=== PATIENT | male | born 1955 | race Caucasian/White ===

== ENCOUNTER 2017-11-04 23:28 | Emergency (ER) | payer OTHER ==
[~2017-11-04] VITALS: Ht 175.3 cm; Wt 89.8 kg
[2017-11-04] MEDS ORDERED: LANTUS100 UNIT/M SUBQ (23:34)
[2017-11-04] MEDS ORDERED: GLUMETZA500 PO (23:34)
[2017-11-05] MEDS ORDERED: HYDROXYZINE HCL25 M1 PO (00:05)
== END 2017-11-05 00:45 | disposition home or self-care (01) ==
LOC: ER 23:28
DX: F41.9 Anxiety disorder, unspecified (principal)

== ENCOUNTER 2017-11-15 21:34 | Emergency (ER) | payer OTHER ==
[~2017-11-15] VITALS: Ht 175.3 cm; Wt 89.8 kg
--- NOTE | ~2017-11-15 | EKG ---
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
[~2017-11-15 21:34] MED LIST: GLUMETZA500 PO; HYDROXYZINE HCL25 M1 PO; LANTUS100 UNIT/M SUBQ
[2017-11-15 22:10] LABS: ABSOLUTE NEUTROPHILS 7.4 thou/uL (1.4-8.2); BASOPHILS 0.9 % (0.0-2.0); EOSINOPHILS 3.2 % (0.0-3.0); HEMATOCRIT 40.7 % (42.0-52.0); HEMOGLOBIN 14.1 gm/dL (14.0-18.0); LYMPHOCYTES 16.2 % (24.0-44.0); MCH 29.7 pg (26.0-34.0); MCHC 34.7 g/dL (28.0-37.0); MCV 85.6 fL (80.0-100.0); MONOCYTES 7.7 % (1.0-8.0); PLATELET COUNT 280 thou/uL (150-400); RBC 4.76 mil/uL (4.50-6.00); RDW 15.2 % (10.5-14.5); WBC 10.2 thou/uL (4.0-11.0)
[2017-11-15 22:17] LABS: ANION GAP 9 mmol/L (7-16); BUN 17 mg/dL (7-18); CALCIUM 8.9 mg/dL (8.5-10.1); CHLORIDE 94 mmol/L (98-107); CO2 22 mmol/L (21-32); GLUCOSE 152 mg/dL (74-106); POTASSIUM 4.3 mmol/L (3.5-5.1); SODIUM 125 mmol/L (136-145)
[2017-11-15 22:26] LABS: TROPONIN-I < 0.04 ng/mL (<0.06)
[2017-11-15] MEDS ORDERED: HYDROXYZINE HCL25 M1 PO (22:56)
[2017-11-15] MEDS ORDERED: PROVENTIL HFA6.7 G1 INH (22:56)
[2017-11-15] MEDS ORDERED: LEVAQUIN 750 M750 MG PO (22:56)
[2017-11-16 01:14] VITALS: BP 137/84
== END 2017-11-16 01:16 | disposition home or self-care (01) ==
LOC: ER 21:34
PROVIDERS: Physician Assistant
DX: J18.9 Pneumonia, unspecified organism (principal); F41.0 Panic disorder [episodic paroxysmal anxiety]; E11.9 Type 2 diabetes mellitus without complications; Z90.49 Acquired absence of other specified parts of digestive tract; Z79.4 Long term (current) use of insulin

== ENCOUNTER 2018-10-19 12:44 | Emergency (ER) | payer OTHER ==
[~2018-10-19] VITALS: Ht 175.3 cm; Wt 77.1 kg
[~2018-10-19 12:44] MED LIST changes: +LEVAQUIN 750 M750 MG PO; +PROVENTIL HFA6.7 G1 INH
[2018-10-19 12:49] VITALS: BP 108/63
[2018-10-19] MEDS ORDERED: MOBIC7.5 MG PO (13:03)
== END 2018-10-19 13:40 | disposition home or self-care (01) ==
LOC: ER 12:44
DX: M54.42 Lumbago with sciatica, left side (principal); E11.9 Type 2 diabetes mellitus without complications; F32.9 Major depressive disorder, single episode, unspecified; F41.0 Panic disorder [episodic paroxysmal anxiety]; F20.9 Schizophrenia, unspecified; Z90.49 Acquired absence of other specified parts of digestive tract; Z79.4 Long term (current) use of insulin

== ENCOUNTER 2018-11-28 21:40 | Emergency (ER) | payer OTHER ==
[~2018-11-28] VITALS: Ht 175.3 cm; Wt 77.1 kg
[~2018-11-28 21:40] MED LIST changes: +MOBIC7.5 MG PO
[2018-11-28] MEDS ORDERED: FLEXERIL PO (22:38)
[2018-11-28 22:55] VITALS: BP 124/68
== END 2018-11-28 22:55 | disposition home or self-care (01) ==
LOC: ER 21:40
DX: M54.5 Low back pain (principal); E11.9 Type 2 diabetes mellitus without complications; F41.0 Panic disorder [episodic paroxysmal anxiety]; J44.9 Chronic obstructive pulmonary disease, unspecified; F32.9 Major depressive disorder, single episode, unspecified; F20.9 Schizophrenia, unspecified; Z90.49 Acquired absence of other specified parts of digestive tract; Z79.4 Long term (current) use of insulin

== ENCOUNTER 2018-12-14 23:31 | Emergency (ER) | payer OTHER ==
[~2018-12-14] VITALS: Ht 162.6 cm; Wt 77.1 kg
[~2018-12-14 23:31] MED LIST changes: +FLEXERIL PO
[2018-12-15] MEDS ORDERED: MOBIC7.5 MG PO (02:51)
[2018-12-15] MEDS ORDERED: SENNA-DOCUSATE1 EAC1 PO (02:51)
[2018-12-15] MEDS ORDERED: NORCO 5-325 TA1 EACH PO (02:51)
[2018-12-15 05:08] VITALS: BP 112/73
[2018-12-16] MEDS ORDERED: NORCO 5-325 TA1 EACH PO (18:55)
== END 2018-12-15 05:10 | disposition home or self-care (01) ==
LOC: ER 23:31
DX: S32.050A Wedge compression fracture of fifth lumbar vertebra, initial encounter for closed fracture (principal); E11.9 Type 2 diabetes mellitus without complications; F41.0 Panic disorder [episodic paroxysmal anxiety]; J44.9 Chronic obstructive pulmonary disease, unspecified; F32.9 Major depressive disorder, single episode, unspecified; F20.9 Schizophrenia, unspecified; Z90.49 Acquired absence of other specified parts of digestive tract; Z79.4 Long term (current) use of insulin; W18.39XA Other fall on same level, initial encounter; Y92.89 Other specified places as the place of occurrence of the external cause; Y93.89 Activity, other specified; Y99.8 Other external cause status

== ENCOUNTER 2018-12-16 17:59 | Emergency (ER) | payer OTHER ==
[~2018-12-16] VITALS: Ht 170.2 cm; Wt 77.1 kg
[~2018-12-16 17:59] MED LIST changes: +NORCO 5-325 TA1 EACH PO; +SENNA-DOCUSATE1 EAC1 PO
[2018-12-16] MEDS ORDERED: NORCO 5-325 TA1 EACH PO (18:55)
[2018-12-16 19:09] VITALS: BP 146/84
== END 2018-12-16 19:11 | disposition home or self-care (01) ==
LOC: ER 17:59
DX: S32.058A Other fracture of fifth lumbar vertebra, initial encounter for closed fracture (principal); Z76.0 Encounter for issue of repeat prescription; E11.9 Type 2 diabetes mellitus without complications; J44.9 Chronic obstructive pulmonary disease, unspecified; F32.9 Major depressive disorder, single episode, unspecified; F20.9 Schizophrenia, unspecified; Z90.49 Acquired absence of other specified parts of digestive tract; Z79.4 Long term (current) use of insulin; X58.XXXA Exposure to other specified factors, initial encounter; Y92.89 Other specified places as the place of occurrence of the external cause; Y93.89 Activity, other specified; Y99.8 Other external cause status

== ENCOUNTER 2019-01-06 12:31 | Inpatient (IN) | payer OTHER ==
[~2019-01-06] VITALS: Ht 175.3 cm; Wt 65.3 kg
[2019-01-06 12:31] VITALS: BP 111/66
--- NOTE | 2019-01-06 12:46 | NUR ---
SPOKE WITH , SHE STATES HE IS OUT OF DIABETIC MEDICINE FOR 5 MONTHS.
[2019-01-06 13:04] LABS: ABSOLUTE NEUTROPHILS 10.6 thou/uL (1.4-8.2); BASOPHILS 0.6 % (0.0-2.0); EOSINOPHILS 0.5 % (0.0-3.0); HEMATOCRIT 30.9 % (42.0-52.0); HEMOGLOBIN 10.2 gm/dL (14.0-18.0); LYMPHOCYTES 8.1 % (24.0-44.0); MCH 30.2 pg (26.0-34.0); MCHC 33.1 g/dL (28.0-37.0); MCV 91.1 fL (80.0-100.0); MONOCYTES 5.2 % (1.0-8.0); PLATELET COUNT 243 thou/uL (150-400); POLYS 85.6 % (36.0-66.0); RBC 3.39 mil/uL (4.50-6.00); RDW 17.7 % (10.5-14.5); WBC 12.4 thou/uL (4.0-11.0)
[2019-01-06 13:09] LABS: AMP/METHAMP Negative (Negative); BARBITURATES Negative (Negative); BENZODIAZEPINES Negative (Negative); COCAINE Negative (Negative); METHADONE Negative (Negative); OPIATES Negative (Negative); PCP Negative (Negative)
[2019-01-06 13:13] LABS: CALCIUM 8.9 mg/dL (8.5-10.1); CREATININE 1.2 mg/dL (0.7-1.3); POTASSIUM 4.1 mmol/L (3.5-5.1)
[2019-01-06 13:23] LABS: TROPONIN-I 0.37 ng/mL (<0.06)
[2019-01-06 15:47] LABS: BE(vivo) -1.2 mmol/L (-2 to +3); HCO3 23.9 mmol/L (22.0-26.0); PCO2 41.7 mmHg (35.0-45.0); PO2 61.7 mmHg (80.0-100.0); pH 7.376 (7.360-7.450); sO2 91.2 % (92.0-98.0)
[2019-01-06 16:49] VITALS: BP 139/64
--- NOTE | 2019-01-06 17:46 | 2DMMODE ---
[facility] [place] [address] 2 D/M-MODE ECHOCARDIOGRAM Name: DIA ADAMS Room #: 355-P ADM IN M.R.#: [id number] ������������� Admission: 01/06/19 ������������� Attend Phys: Tariq Nguyen MD Discharge: ��� ������������� ��� Date of : 55 Date of Service: 01/06/19 1746 �� Report #: [id number] �������� ��������������������������������������������[id number] THIS REPORT FOR: //name// APPROVED REPORT Study performed: 01/06/2019 14:25:21 EXAM: Comprehensive 2D, Doppler, and color-flow Echocardiogram Patient Location: ER Room #: 7 Status: stat BSA: 1.91 HR: 103 bpm BP: 126/63 mmHg Rhythm: Tachycardia Other Information Study Quality: Technically DifficultTechnically Limited Risk Factors: Cardiac Risk Factors: Diabetes (insulin), Smoking Indications Diabetes Elevated Troponin Chest Pain Hypertension/HDD 2D Dimensions IVC: 17.00 mm Aortic Valve AoV Peak Santos.: 1.68 m/s AO Peak Gr.: 11.26 mmHg LVOT Max P.66 mmHg LVOT Max V: 1.63 m/s Left Ventricle The left ventricle is normal size. There is normal LV segmental wall motion. There is normal left ventricular wall thickness. Left ventricular systolic function is hyperdynamic. LVEF is 65-70%. Grade I - abnormal relaxation pattern. Right Ventricle The right ventricle is normal size. The right ventricular systolic [facility] [address] [place] [address] 2 D/M-MODE ECHOCARDIOGRAM Name: DIA ADAMS Room #: 355-P ADM IN M.R.#: [id number] ������������� Admission: 01/06/19 ������������� Attend Phys: Tariq Nguyen MD Discharge: ��� ������������� ��� Date of : 55 Date of Service: 01/06/19 1746 �� Report #: [id number] �������� ��������������������������������������������[id number] function is normal. Atria The left atrium size is normal. The right atrium size is normal. Aortic Valve The aortic valve is normal in structure. No aortic regurgitation is present. There is no aortic valvular stenosis. Mitral Valve The mitral valve is normal in structure. There is no mitral valve regurgitation noted. No evidence of mitral valve stenosis. Tricuspid Valve The tricuspid valve is normal in structure. There is no tricuspid valve regurgitation noted. Pulmonic Valve Pulmonic valve is not well visualized. Great Vessels The aortic root is normal in size. IVC is normal in size and collapses >50% with inspiration. Pericardium There is no pericardial effusion. <Conclusion> The left ventricle is normal size. Left ventricular systolic function is hyperdynamic. LVEF is 65-70%. Grade I - abnormal relaxation pattern. The left atrium size is normal. The aortic valve is normal in structure. The mitral valve is normal in structure. There is no mitral valve regurgitation noted. There is no tricuspid valve regurgitation noted. The aortic root is normal in size. There is no pericardial effusion. ��������������������������������������������� <ELECTRONICALLY SIGNED> ���������������������������������������� By: Bg Benites MD, FACC ��������������������������������������������� 01/06/191745 45 45 Bg Benites MD, FACC /INF
[2019-01-06 17:50] VITALS: BP 143/66
[2019-01-06 17:52] VITALS: BP 112/68
--- NOTE | 2019-01-06 18:00 | NUR ---
report received from Bradley/ems @ 1704. pt received to room 355 via stretcher and Bradley @ 7796. pt settled into bed and orientated to room. vss. scd's on. pt noted to have a small bm (incontinent) upon skin assessment. noted rectoseal & blanching redness to coccyx area, cleaned and barrier cream applied. pt quiet and comfortably at this time. o2 @ 2.5lt per nc applied by er prior to receiving dt high 80s to low 90's saturations. received call from dr. medel as he was consulted by dr. bauer. bed alarm on. no family or friends at bs at this time. ac = 100 @ 1163.
[2019-01-06 19:32] VITALS: BP 120/61
[2019-01-07] MEDS ORDERED: TRAZODONE HCL100 MG PO (02:08)
[2019-01-07 03:47] VITALS: BP 149/75
--- NOTE | 2019-01-07 06:29 | NUR ---
PT MAKING SLOW PROGRESS TOWARDS GOALS. PT SLEPT MUCH OF THE EVENING. DID AWAKE AND WAS GIVEN ONE LORTAB FOR BACK PAIN VOICING MILD RELIEF. AT BEDSIDE OVERNIGHT.
[2019-01-07 16:44] VITALS: BP 142/68
[2019-01-07 19:53] VITALS: BP 139/60
[2019-01-08 05:38] VITALS: BP 130/63
--- NOTE | 2019-01-08 06:07 | NUR ---
PT MAKING SLOW PROGRESS TOWARDS GOALS. OCCASIONAL CONGESTED COUGH NOTED. PT DENIES GAGGING OR CHOCKING AT THOSE TIMES. SMALL AMOUNT OF YELLOW SPUTUM. LORTAB X2 GIVEN PER ORDERS.
[2019-01-08 08:01] VITALS: BP 141/67
--- NOTE | 2019-01-08 08:22 | NUR ---
care of pt assumed this am @ ~0700. pt noted to be awake watching tv and requesting coffee this am. pt co chronic back pain 03/01, requesting pain medication this am, given. pt co soa w/ activity (ie walking to the [facility]), pt on o2 @ 2lt nc. vss. pt received breakfast, noted to have nectar thick liquids on tray, which pt enjoys. pt hoping to receive visitors today as well as get a "bit better today". pt voiding per urinal in bed at this time. iv antibx receiving. no family or friends at now. pt requesting he be ordered his trazadone as he says that is the "only thing" that helps him sleep.
[2019-01-08 14:27] LABS: HEMATOCRIT 28.6 % (42.0-52.0); HEMOGLOBIN 9.3 gm/dL (14.0-18.0); MCH 29.5 pg (26.0-34.0); MCHC 32.4 g/dL (28.0-37.0); MCV 90.9 fL (80.0-100.0); RBC 3.14 mil/uL (4.50-6.00); RDW 17.4 % (10.5-14.5); WBC 12.1 thou/uL (4.0-11.0)
[2019-01-08 14:33] LABS: CALCIUM 8.9 mg/dL (8.5-10.1); CREATININE 0.9 mg/dL (0.7-1.3); MAGNESIUM 1.8 mg/dL (1.8-2.4); POTASSIUM 4.9 mmol/L (3.5-5.1)
[2019-01-08 14:39] LABS: APTT 29.3 Seconds (24.5-32.8); INR 1.1; PROTIME 11.1 Seconds (9.3-11.4)
[2019-01-08 16:56] VITALS: BP 117/57
--- NOTE | 2019-01-08 22:31 | EKG ---
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: REGINALD : 1955 Requested By: Neri Pryor Order Number: [id number] MD: Nas Andrew Measurements Intervals [place] Rate: 109 P: 63 [place]: 141 QRS: -55 QRSD: 116 T: 77 QT: 349 QTc: 471 Interpretive Statements Sinus tachycardia Left anterior fascicular block Probable anterolateral infarct, old Compared to ECG 11/15/2017 21:37:39 Sinus rhythm no longer present Right bundle-branch block no longer present Myocardial infarct finding still present Electronically Signed On 01-08-2019 22:31:08 CDT by Nas Andrew [email or web address] ��������������������������������������������� <ELECTRONICALLY SIGNED> ���������������������������������������� By: Nas Andrew MD ��������������������������������������������� 01/08/19 2231 1308 1308 Nas Andrew MD /EPI
--- NOTE | 2019-01-08 22:37 | EKG ---
[address] [address] ELECTROCARDIOGRAM REPORT Name: DIA ADAMS Room #: 355-P ADM IN M.R.#: [id number] ������������������ Admission: 01/06/19 ������������������ Attend Phys: Tariq Nguyen MD Discharge: ������������������ Date of : 55 Report #: [id number] ����������������������������������������������������������������� [id number] THIS REPORT FOR: //name// [facility] Test Date: 2019-01-07 Test Time: 07:43:09 Pat Name: DIA ADAMS Department: Room: 355 P Gender: M Call Center Associate: GLEN : 1955 Requested By: Bg Benites Order Number: [id number] MD: Nas Andrew Measurements Intervals [place] Rate: 93 P: 68 RI: 153 QRS: -48 QRSD: 118 T: 72 QT: 370 QTc: 461 Interpretive Statements Sinus rhythm Left anterior fascicular block Compared to ECG 11/15/2017 21:37:39 Right bundle-branch block no longer present Myocardial infarct finding no longer present Electronically Signed On 01-08-2019 22:37:17 CDT by Nas Andrew [email or web address] ��������������������������������������������� <ELECTRONICALLY SIGNED> ���������������������������������������� By: Nas Andrew MD ��������������������������������������������� 01/08/19 2237 0743 0743 Nas Andrew MD /CON
[2019-01-09 03:21] VITALS: BP 128/72
--- NOTE | 2019-01-09 03:47 | NUR ---
No acute changes this shift. Patient NPO at midnight for bronch with biopsy today. Patient has slept most of shift. Patient has so far been given pain meds once for chronic back pain. Patient stated that his pain decreased quite a bit. Patient coughs often when needed to clear airway. Patient on 1L NC. Wound on bottom assessed; patient's said it started at home and that he started complaining of it hurting before hospitalization. Patient was able to turn self when assessed for strength. Partial progress toward goals at this time.
[2019-01-09 07:55] VITALS: BP 122/62
--- NOTE | 2019-01-09 11:01 | NUR ---
received report from Leidy in pacu @ 4732. pcxr complete in pacu. stated am levaquin ivpb received in pre-op.
--- NOTE | 2019-01-09 15:41 | NUR ---
ASSESSMENT: CM REVIEWED CHART AND MET WITH PATIENT AND HIS AT THE BEDSIDE. PT WAS ADMITTED WITH PNEUMONIA/HYPOXIA AND CT SHOWED MULTIPLE PULMONARY NODULES CONCERNING FOR METASTATIC LUNG CANCER. PT IS TO HAVE BRONCH. PT REPORTS HE LIVES AT HOME WITH HIS IN A SINGLE STORY HOME. PT REPORTS NO STEPS TO ENTER OR ONCE INSIDE. PT REPORTS HE AMBULATES USING A CANE OR WALKER. PT IS CURRENTLY ON OXYGN BUT DOES NOT HAVE ANY OXYGEN AT HOME. PT DENIES HAVING A GRAB BAR OR SHOWER CHAIR. PT IS INTERESTED IN HOMEMAKER SERVICES AND HAS MEDICAID SECONDARY SO CM CONTACTED HOMEMAKERS AT [phone]. PT REPORTS HE IS UNSURE HE HAS HAD HH IN THE PAST. PT DENIES BEING TO A SNF/REHAB. PT REPORTS NEITHER HE OR HIS DRIVE AND THAT PATIENTS WIFES SISTERS TAKES THEM PLACES. CM WILL CONTINUE TO FOLLOW TO ASSIST WITH DISCHARGE NEEDS.
[2019-01-09 16:01] VITALS: BP 122/87
[2019-01-09 19:27] VITALS: BP 128/59
[2019-01-10 03:58] VITALS: BP 102/74
--- NOTE | 2019-01-10 05:15 | NUR ---
Patient tolerating 1LNC well. Pain has been under control with one hydrocodone administration thus far. Patient has slept most of shift with waking up to eating snacks occassionally. Patient reported by dayshift to have had a much better appetite and that appears to be true this shift. Patient has been in bed all shift. An order was given for the patient to be off telemetry to shower. The patient stated he wants to sleep overnight and do it today. at bedside all shift. Progress made toward plan of care goals.
[2019-01-10 05:38] LABS: HEMATOCRIT 26.2 % (42.0-52.0); HEMOGLOBIN 8.5 gm/dL (14.0-18.0); MCH 29.4 pg (26.0-34.0); MCHC 32.5 g/dL (28.0-37.0); MCV 90.7 fL (80.0-100.0); RBC 2.89 mil/uL (4.50-6.00); RDW 17.7 % (10.5-14.5); WBC 12.5 thou/uL (4.0-11.0)
[2019-01-10 05:47] LABS: ALBUMIN 2.5 g/dL (3.4-5.0); CALCIUM 8.5 mg/dL (8.5-10.1); CREATININE 0.9 mg/dL (0.7-1.3); MAGNESIUM 1.8 mg/dL (1.8-2.4); POTASSIUM 4.4 mmol/L (3.5-5.1); TOTAL BILIRUBIN 0.7 mg/dL (<0.1-1.0); TOTAL PROTEIN 6.1 g/dL (6.4-8.2)
[2019-01-10 07:24] VITALS: BP 122/54
[2019-01-10 15:24] VITALS: BP 128/66
--- NOTE | 2019-01-10 16:13 | NUR ---
on-going assessment: CM REVIEWED CHART AND MET WITH PATIENT AT THE BEDSIDE. PT/OT MET WITH PATIENT AND HE IS NOT QUALIFYING FOR SNF. CM MET WITH PATIENT AND HIS AT THE BEDSIDE TO FURTHER DISCUSS NOT HAVING WATER/ELECTRICTY AT THEIR HOME WHICH THEY STATE IT HAS BEEN THIS WAS FOR ABOUT 3 MONTHS. CM ASKED IF THEY HAD REACHED OUT TO ANYONE FOR ASSISTANCE AND THEY STATED NO. HE STATES THEY JUST HAVE TO MAKE IT TO FEBRUARY THEN THEY ARE MOVING INTO AN APARTMENT WHERE ALL THE UTILITIES ARE PAID FOR. CM ASKED WHO HELPED ASSIST THEM WITH FINDING THIS AND HE STATED THEY FOUND IT. CM REACHED OUT TO THE [employer] TO SEE IF THERE IS ANY ASSISTANCE THAT CAN BE OFFERED TO PATIENT AND SHE PROVIDED CM WITH MULTIPLE DIFF RESOURCES THAT MAY BE ABLE TO HELPING DEPENDING ON THEIR WAITING LIST/FUNDING. CM PROVIDED PATIENT WITH LIST AND CONTACT NUMBERS FOR [facility], [employer] [facility], [facility], [facility], [facility]. PATIENT WAS ALSO GIVEN THE NUMBER FOR [employer] [phone] WHO CAN PROVIDE ALL OF THESE RESOURCES WELL MORE IF PATIENT CALLS. CM LEFT THIS INFORMATION WITH PATIENT AND HIS .
--- NOTE | 2019-01-10 17:06 | PATH ---
[facility] [place] [address] PATHOLOGY RPT PROCEDURE Name: DIA ADAMS Room #: 355-P ADM IN M.R.#: [id number] ������������������ Admission: 01/06/19 ������������������ Date of : 55 Discharge: Report #: [id number] Path Case #: [id number] [facility] Accession Number: [id number] . 01 Material submitted: . PART A: bronchus - SUBCARINAL TISSUE BIOPSY PART B: bronchus - PERRI TISSUE BIOPSY. Modifiers: left, lower PART C: bronchus - RUL TISSUE BIOPSY. Modifiers: right, upper . 01 Clinical history: . Lower back pain . 02 Diagnosis: A. Lung, subcarinal tissue, bronchial biopsy: - Superficial detached strips of benign bronchial epithelium as well as blood. - Negative for malignancy. . B. Tissue designated as "left upper lobe tissue", biopsy: - Scant to rare benign bronchial epithelial cells along with fibrin and elements of peripheral blood. - No intact tissue present for evaluation. . C. Lung, right upper lobe tissue, biopsy: - Detached strips of benign bronchial epithelium along with scattered detached single bronchial epithelial cells. - Mild chronic inflammation. - Negative for malignancy. (IUV/db; 01/10/2019) LBQ/01/10/2019 . 02 Electronically signed: . Tessy Ibrahim MD, Pathologist NPI- [id number] . 01 Gross description: . A. The specimen is received in formalin, labeled "Dia Adams, subcarinal tissue biopsy", are few minute hemorrhagic fragments approximately measuring 0.1 cm in greatest dimension. The content of the container is filtered into a biopsy bag and entirely submitted in A1. . B. The specimen is received in formalin, labeled "Dia Adams PERRI tissue biopsy", are few minute hemorrhagic fragments approximately measuring 0.1 cm in greatest dimension. The content of the container is filtered into a biopsy bag and entirely submitted in B1. . C. The specimen is received in formalin, labeled "Dia Adams, [address] [address] PATHOLOGY RPT PROCEDURE Name: DIA ADAMS Room #: 355-P [facility] IN M.R.#: [id number] ������������������ Admission: 01/06/19 ������������������ Date of : 55 Discharge: Report #: [id number] Path Case #: [id number] RUL tissue biopsy", are few minute hemorrhagic fragments approximately measuring 0.1 cm in greatest dimension. The content of the container is filtered into a biopsy bag and entirely submitted in C1. ([facility]; 01/09/2019) . . . . . . . SHS/SHS . 02 Pathologist provided ICD-10: J98.4 . 02 CPT . 118334, 426052, 124447 Specimen Comment: A courtesy copy of this report has been sent to Specimen Comment: [phone], . Specimen Comment: Report sent to / DR TERRELL Performed at: [address], [place] [id number] MD Jason Sarmiento MD Phone: [phone] Performed at: [address] [id number] MD Tessy Ibrahim MD Phone: [phone]
[2019-01-10 20:35] VITALS: BP 122/58
[2019-01-11 03:37] VITALS: BP 114/62
--- NOTE | 2019-01-11 04:56 | NUR ---
ASSUMED CARE OF PT AT 1900. A&Ox4. VS STABLE. CONTINUED W/ 1L O2 VIA NC AND BREATHING TX'S. STATED HE FEELS LIKE HE IS BREATHING A LITTLE BETTER. DID COUGH UP BLOOD TINGED GREEN-WHITE MUCOUS. STATED IT WAS FROM A TREATMENT. 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 PT C/O BACK PAIN 1X, MEDS PROVIDED, PT ABLE TO REST. NO ACUTE DISTRESS OVER NOC. CURRENTLY SLEEPING. PROGRESSING WELL TOWARDS POC GOALS.
[2019-01-11 07:39] VITALS: BP 135/72
[2019-01-11] MEDS ORDERED: LEVAQUIN 500 M500 M2 PO (08:39)
[2019-01-11 11:38] VITALS: BP 118/73
[2019-01-11] MEDS ORDERED: NORCO 5-325 TA1 EACH PO (12:56)
--- NOTE | 2019-01-11 13:07 | PATH ---
[facility] [address] [place] [address] PATHOLOGY RPT PROCEDURE Name: DIA ADAMS Room #: 355-P ADM IN M.R.#: [id number] ������������������ Admission: 01/06/19 ������������������ Date of : 55 Discharge: Report #: [id number] Path Case #: [id number] Note [facility] Accession Number: [id number] TESTS RESULT FLAG UNITS REF RANGE LAB Clinician Provided Cytology Information No. of containers..01 Other (Miscellaneous) Source: BAL PERRI DIAGNOSIS: BAL PERRI NEGATIVE FOR MALIGNANT CELLS. REACTIVE BRONCHIAL CELLS ARE PRESENT. PULMONARY MACROPHAGES (DUST CELLS) ARE PRESENT. Pathologist ICD10: 02 J18.9 Signed out by: Tessy Ibrahim MD, Pathologist NPI- [id number] Performed by: Marcy Edwards, Marketing Co Op ([facility]) Gross description: 01 20ML, YELLOW, CLOUDY /LCS FLAG LEGEND: L-Low Normal,H-High Normal,LL-Alert Low,HH-Alert High <-Panic Low,>-Panic High,A-Abnormal,AA-Critical Abnormal Performed at: [address] [place] [address] Jason Sarmiento MD, [address] [address] Tessy Ibrahim MD, Specimen Comment: A courtesy copy of this report has been sent to Specimen Comment: [phone], . Specimen Comment: Report sent to DR IBARRA / DR ETRRELL Specimen Comment: A duplicate report has been generated due to demographic updates. Performed at: [address], [place], [place] [id number] MD Jason Sarmiento MD Phone: [phone]
--- NOTE | 2019-01-11 13:07 | PATH ---
[facility] [place] [address] PATHOLOGY RPT PROCEDURE Name: DIA ADAMS Room #: 355-P ADM IN M.R.#: [id number] ������������������ Admission: 01/06/19 ������������������ Date of : 55 Discharge: Report #: [id number] Path Case #: [id number] Note [facility] Accession Number: [id number] TESTS RESULT FLAG UNITS REF RANGE LAB Clinician Provided Cytology Information No. of containers..01 Other (Miscellaneous) Source: BRUSH TIP DIAGNOSIS: BRUSH TIP INCONCLUSIVE. REACTIVE BRONCHIAL CELLS ARE PRESENT. PULMONARY MACROPHAGES (DUST CELLS) ARE PRESENT. Comment: Examination shows few groups of cells with clumped chromatin and scant cytoplasm. The nuclear details are obscured due to these being present in the form of groups or clusters. The differential diagnosis for these cell groups includes partially sampled neoplastic cells or markedly reactive bronchial epithelial cells. The bronchial epithelial cells identified elsewhere on the slide appear reactive. Clinical correlation is suggested. Pathologist ICD10: 02 J18.9 Signed out by: Tessy Ibrahim MD, Pathologist NPI- [id number] Performed by: Marcy Edwards, Digital Forensics Examiner ([facility]) FLAG LEGEND: L-Low Normal,H-High Normal,LL-Alert Low,HH-Alert High <-Panic Low,>-Panic High,A-Abnormal,AA-Critical Abnormal Performed at: 01 [facility] [address] [place] [address] Jason Sarmiento MD, 02 [facility] [address] [address] Tessy Ibrahim MD, Specimen Comment: A courtesy copy of this report has been sent to Specimen Comment: [phone], . Specimen Comment: Report sent to / DR TERRELL Specimen Comment: A duplicate report has been generated due to demographic updates. Performed at: [address] [address] PATHOLOGY RPT PROCEDURE Name: DIA ADAMS Room #: 355-P [facility] IN M.R.#: [id number] ������������������ Admission: 01/06/19 ������������������ Date of : 55 Discharge: Report #: [id number] Path Case #: [id number] [facility] [address], [place], [place] [id number] MD Jason Sarmiento MD Phone: [phone]
--- NOTE | 2019-01-11 13:07 | PATH ---
[facility] [address] [place] [address] PATHOLOGY RPT PROCEDURE Name: DIA ADAMS Room #: 355-P ADM IN M.R.#: [id number] ������������������ Admission: 01/06/19 ������������������ Date of : 55 Discharge: Report #: [id number] Path Case #: [id number] Note [facility] Accession Number: [id number] TESTS RESULT FLAG UNITS REF RANGE LAB Clinician Provided Cytology Information No. of containers..01 Other (Miscellaneous) Source: PERRI BRUSHINGS DIAGNOSIS: 02 PERRI BRUSHINGS NEGATIVE FOR MALIGNANT CELLS. REACTIVE BRONCHIAL CELLS ARE PRESENT. RED BLOOD CELLS ARE PRESENT. PULMONARY MACROPHAGES (DUST CELLS) ARE PRESENT. MILD ACUTE INFLAMMATION ASSOCIATED WITH THE BRONCHIAL EPITHELIAL CELLS. Pathologist ICD10: 02 J18.9 Signed out by: 02 Tessy Ibrahim MD, Pathologist NPI- [id number] Performed by: 01 Marcy Edwards, Clerk Television Production ([facility]) FLAG LEGEND: L-Low Normal,H-High Normal,LL-Alert Low,HH-Alert High <-Panic Low,>-Panic High,A-Abnormal,AA-Critical Abnormal Performed at: [address] [place] [address] Jason Sarmiento MD, [address] [address] Tessy Ibrahim MD, Specimen Comment: A courtesy copy of this report has been sent to Specimen Comment: [phone], . Specimen Comment: Report sent to DR IBARRA / DR TERRELL Specimen Comment: A duplicate report has been generated due to demographic updates. Performed at: [address], [place], [place] [id number] MD Jason Sarmiento MD Phone: [phone]
[2019-01-11] MEDS ORDERED: OXYGEN MISCELL (13:25)
[2019-01-11 13:44] VITALS: BP 118/73
[2019-01-11 13:46] VITALS: BP 118/73
--- NOTE | 2019-01-11 13:47 | NUR ---
ON-GOING ASSESSMENT: PT HAS ORDERS TO DISCHARGE HOME TODAY AND IS REQUIRING HOME OXYGEN. CM MET WITH PATIENT AND HIS AT THE BEDSIDE AND ASKED IF THEY HAD CALLED OR FOLLOWED UP WITH ANY OF THE RESOURCES ALISHA PROVIDED YESTERDAY FOR ASSISTANCE WITH TURNING ON THEIR ELECTRICITY OR WATER. THEY STATED NO BUT WILL TODAY. PT IS NEEDING HOME OXYGEN BUT HAS NO POWER. CM DISCUSSED WITH CM DIRECTOR. PROVIDER PLUS IS TO SUPPLY PATIENT WITH TWO WEEKS WORTH OF E TANKS COVERED BY CM DEPARTMENT (APPROVED BY CM DIRECTOR) AND THEN PATIENT WILL BE RESPONSIBLE THERE ON AFTER AND IS RESPONSIBLE FOR FOLLOWING UP WITH THE RESOURCES PROVIDED. PROVIDER PLUS IS TO DELIVER PORTABLE TANK TO PATIENTS ROOM AND WILL DELIVER THE OTHER PORTABLE TANKS TO PTS HOME. CM DISCUSSED WITH PT AND HIS THE IMPORTANCE OF FOLLOWING UP WITH RESOURCES CM CAN ONLY PROVIDE TWO WEEKS COVERED OF E TANKS. PT STATED UNDERSTANDING. PT REPORTS THEY NEED ASSISTANCE WITH TRANSPORTATION HOME. ALISHA PROVIDED BEDSIDE RN WITH A CAB VOUCHER FOR PATIENT AND HIS .
[2019-01-11 13:56] VITALS: BP 118/73
--- NOTE | 2019-01-11 15:04 | NUR ---
PT DISCHARGED TO HOME WITH SPOUSE..VSS..HOME O2 PROVIDED PER CASE MGT X 2 WEEKS..NEEDS O2 1L AT REST AND 4L WITH EXERCISE..PT HAS NO ELECTRICITY OR WATER..SEVERAL AGENCIES PROVIDED PER SWS FOR ASSIST WITH UTILITIES..RX GIVEN..CAB VOUCHER GIVEN...
--- NOTE | 2019-01-11 16:06 | PATH ---
[facility] [address] [place] [address] PATHOLOGY RPT PROCEDURE Name: DIA ADAMS Room #: 355-P [facility] IN M.R.#: [id number] ������������������ Admission: 01/06/19 ������������������ Date of : 55 Discharge: 01/11/19 Report #: [id number] Path Case #: [id number] Note [facility] Accession Number: [id number] TESTS RESULT FLAG UNITS REF RANGE LAB Clinician Provided Cytology Information No. of containers..01 Other (Miscellaneous) Source: SUBCARINAL TBNA ASP DIAGNOSIS: SUBCARINAL TBNA ASP INADEQUATE, INSUFFICIENT CELLS FOR STUDY. ESSENTIALLY ACELLULAR SPECIMEN. Signed out by: 02 Tessy Ibrahim MD, Pathologist NPI- [id number] Performed by: 01 Ray Bunch, Restaurant Hourly Manager ([facility]) FLAG LEGEND: L-Low Normal,H-High Normal,LL-Alert Low,HH-Alert High <-Panic Low,>-Panic High,A-Abnormal,AA-Critical Abnormal Performed at: [address] [place] [address] Jason Sarmiento MD, [address] [address] Tessy Ibrahim MD, Specimen Comment: A courtesy copy of this report has been sent to Specimen Comment: [phone], . Specimen Comment: Report sent to / DR TERRELL Performed at: [address], [place], [place] [id number] MD Jason Sarmiento MD Phone: [phone]
--- NOTE | 2019-01-13 08:27 | NUR ---
CM RECEIVED A VM FROM PATIENTS STATING SHE WANTS TO TALK TO SOMEONE ABOUT HIS OXYGEN. CM ATTEMPTED TO REACH HER [phone] BUT NO ANSWER AND VM IS FULL. CM NOTIFIED PROVIDER PLUS TO REACH OUT TO PATIENT WELL.
== END 2019-01-11 15:09 | disposition home or self-care (01) | DRG 166 ==
LOC: ER 12:31 → 3W 16:21 → EROBS 16:21 → 3W 17:32
PROVIDERS: Emergency Medicine; ADMIT Internal Medicine
PROC: 0B9G8ZX Drainage of Left Upper Lung Lobe, Via Natural or Artificial Opening Endoscopic, Diagnostic (ICD-10-PCS; principal; 2019-01-09)
PROC: 0BBC8ZX Excision of Right Upper Lung Lobe, Via Natural or Artificial Opening Endoscopic, Diagnostic (ICD-10-PCS; principal; 2019-01-09)
PROC: 0BBG8ZX Excision of Left Upper Lung Lobe, Via Natural or Artificial Opening Endoscopic, Diagnostic (ICD-10-PCS; principal; 2019-01-09)
DX: J18.9 Pneumonia, unspecified organism (principal); J96.01 Acute respiratory failure with hypoxia; G92 Toxic encephalopathy; E43 Unspecified severe protein-calorie malnutrition; J44.1 Chronic obstructive pulmonary disease with (acute) exacerbation; J44.0 Chronic obstructive pulmonary disease with (acute) lower respiratory infection; M84.48XA Pathological fracture, other site, initial encounter for fracture; E11.9 Type 2 diabetes mellitus without complications; F32.9 Major depressive disorder, single episode, unspecified; F20.9 Schizophrenia, unspecified; F41.0 Panic disorder [episodic paroxysmal anxiety]; I44.4 Left anterior fascicular block; F17.210 Nicotine dependence, cigarettes, uncomplicated; R91.8 Other nonspecific abnormal finding of lung field; R59.0 Localized enlarged lymph nodes; Z71.6 Tobacco abuse counseling; Z68.21 Body mass index [BMI] 21.0-21.9, adult; I25.2 Old myocardial infarction; Z90.49 Acquired absence of other specified parts of digestive tract; Z79.4 Long term (current) use of insulin; Z79.899 Other long term (current) drug therapy; Z82.5 Family history of asthma and other chronic lower respiratory diseases; Z82.69 Family history of other diseases of the musculoskeletal system and connective tissue
CPT/HCPCS: 10879; 62110; 62900; 70005

== ENCOUNTER 2019-01-26 03:49 | Inpatient (IN) | payer OTHER ==
[~2019-01-26] VITALS: Ht 175.3 cm; Wt 77.1 kg
--- NOTE | ~2019-01-26 | P ---
[facility] [place] [address] PROCEDURE REPORT Name: DIA ADAMS Room #: 349-I ADM IN M.R.#: [id number] Admission: 01/26/19 ������������������ Attend Phys: Tariq Nguyen MD Discharge: ������������������ Date of : 55 Report #: [id number] THIS REPORT FOR: //name// CC: FAM unknown Tariq Nguyen MD DATE OF SERVICE: 02/01/2019 PROCEDURE PERFORMED: Colonoscopy. HISTORY OF PRESENT ILLNESS: The patient is a 63-year-old male with multiple medical problems with significant anemia, had a drop in his hemoglobin requiring 2 units of packed cells recently. EGD just showed a gastric arteriovenous malformation, nonbleeding; however, when I cauterized this, it did actively bleed. No further bleeding after cauterization. Possible source of recent gastrointestinal bleed and anemia. The patient has been Hemoccult positive recently. Plan is for colonoscopy. DESCRIPTION OF PROCEDURE: The risks and benefits of the procedure were explained to the patient, those risks including but not limited to bleeding, perforation and the risk of sedation. He understood these risks and gave informed consent. Sedation was given using propofol per Anesthesia. Next, a digital rectal exam, which was performed, which showed an abnormality in the perianal area and a chronic appearing ulcer, which was indurated. There was no evidence of fluctuance or drainage. This may be secondary to decubitus type pressure ulcer; however, need to consider the possibility of a malignancy in this area. This was perianal in location. Next, using a standard Olympus colonoscope, the scope was placed in the patient's anus and advanced under direct vision to the cecum. The overall prep was good. The cecum and ileocecal valve were normal in appearance. The ascending, transverse, descending and sigmoid colon were all normal. The rectal mucosa was normal. On retroflexion, small nonbleeding internal hemorrhoids noted. The scope was then withdrawn and the procedure terminated. The patient tolerated the procedure well. IMPRESSION: 1. Perianal chronic appearing ulcer. This may be secondary decubitus type ulcer, need to consider the possibility of malignancy. We would recommend wound care to evaluate. 2. Small internal hemorrhoids. 3. Otherwise, normal colonoscopy. RECOMMENDATIONS: Continue to monitor hemoglobin closely. [facility] [address] [place] [address] PROCEDURE REPORT Name: DIA ADAMS Room #: 349-I ADM IN M.R.#: [id number] Admission: 01/26/19 ������������������ Attend Phys: Tariq Nguyen MD Discharge: ������������������ Date of : 55 Report #: [id number] Thank you for allowing me to participate in his care. ��������������������������������������������� ���������������������������������������� By: ��������������������������������������������� [id number] Pranav Medina MD /nt
--- NOTE | ~2019-01-26 | P ---
[facility] [place] [address] PROCEDURE REPORT Name: DIA ADAMS Room #: 349-I ADM IN M.R.#: [id number] Admission: 01/26/19 ������������������ Attend Phys: Tariq Nguyen MD Discharge: ������������������ Date of : 55 Report #: [id number] THIS REPORT FOR: //name// CC: FAM unknown Tariq Nguyen MD DATE OF SERVICE: 02/01/2019 PROCEDURE PERFORMED: Upper endoscopy with bleeding control. HISTORY OF PRESENT ILLNESS: The patient is a 63-year-old male with multiple medical problems including possible lung cancer with metastatic disease. GI consulted for anemia and Hemoccult positive stools. The patient had a drop in his hemoglobin in which he has received 2 units of packed cells. He does report some dark stools at times. His bronchoscopy was canceled due to his drop in hemoglobin recently. The patient also has a previous history of an WV approximately a month ago. He is currently on 5 liters of nasal cannula oxygen. Plan is for EGD and colonoscopy today. DESCRIPTION OF PROCEDURE: The risks and benefits of the procedure were explained to the patient, those risks including but not limited to bleeding, perforation, the risk of sedation. He understood these risks and gave informed consent. Sedation was given using propofol per anesthesia. Next, using a standard Olympus upper endoscope, the scope was placed in the patient's mouth and advanced under direct vision through the esophagus, stomach and into the second portion of the duodenum. There was a white plaquing consistent with Natty esophagitis throughout the mid and distal esophagus. At the GE junction, grade B erosive esophagitis was noted. No evidence of bleeding. In the stomach, overall, the gastric mucosa was normal; however, there was a single gastric AVM in the mid body. This was nonbleeding. Because of his history of anemia and Hemoccult positive stools, I treated this with a 7-Bengali bipolar cautery. Initially, it did start bleeding with further cautery. No further bleeding was noted. The pylorus was normal and patent. In the duodenum, mild duodenitis was noted. No evidence of bleeding, no ulcerations. The first and second portion of the duodenum was normal. The scope was then withdrawn and the procedure terminated. The patient tolerated the procedure well. IMPRESSION: 1. Likely Natty esophagitis. 2. Grade B erosive esophagitis from reflux. 3. Gastric arteriovenous malformation, status post cautery. 4. Duodenitis. RECOMMENDATIONS: 1. Continue PPI therapy. [facility] [address] [place] [address] PROCEDURE REPORT Name: DIA ADAMS Room #: 349-I ADM IN M.R.#: [id number] Admission: 01/26/19 ������������������ Attend Phys: Tariq Nguyen MD Discharge: ������������������ Date of : 55 Report #: [id number] 2. Continue to monitor hemoglobin. 3. We will treat with Mycelex troches for likely Natty esophagitis. 4. We will proceed with colonoscopy next today. Thank you for allowing me to participate in his care. ��������������������������������������������� ���������������������������������������� By: ��������������������������������������������� [id number] Pranav Medina MD /trent
[~2019-01-26 03:49] MED LIST changes: +LEVAQUIN 500 M500 M2 PO; +OXYGEN MISCELL; +TRAZODONE HCL100 MG PO
[2019-01-26 03:52] VITALS: BP 125/64
--- NOTE | 2019-01-26 04:16 | NUR ---
PATIENT'S , VENKATA ADAMS [phone], CALLED THE ER STATING THAT SHE WOULD LIKE HER ADMITTED TO THE HOSPITAL. EDUCATION PROVIDED THAT PATIENT WOULD RECEIVE A CLINICAL WORK UP AND EVALUATION TO DETERMINE WHETHER HE NEEDS TO BE ADMITTED TO THE HOSPITAL, BUT THAT INFORMATION IS NOT AVAILABLE YET HE ARRIVED 20 MINUTES AGO. WANTED TO SPEAK WITH PHYSICIAN - PROVIDER IN ANOTHER PATIENT ROOM. STATES PATIENT SHOULD BE ADMITTED HE WAS RELEASED FROM THE HOSPITAL TWO WEEKS AGO AND HE WAS "HOLLERING ABOUT PAIN" THIS MORNING. SHE STATED THAT SHE DOESN'T WANT HIM COMING HOME, "GETTING SICKER" AND NEEDING TO GO BACK TO THE HOSPITAL. REITERATED THAT SHE THINKS PATIENT SHOULD BE ADMITTED. AGAIN, EDUCATION PROVIDED REGARDING THE NEED FOR DIAGNOSTIC TESTING TO DETERMINE THE PATIENT'S STATUS AND NEED FOR ADMISSION. THIS RN OBTAINED ABOVE MENTIONED PHONE NUMBER SO THAT NURSE CAN CONTACT HER WHEN THE ASMISSION STATUS HAD BEEN DETERMINED. NURSE, RAVIN, MADE AWARE
[2019-01-26 04:37] LABS: HEMATOCRIT 27.5 % (42.0-52.0); MCH 29.1 pg (26.0-34.0); MCHC 32.8 g/dL (28.0-37.0); MCV 88.6 fL (80.0-100.0); PLATELET COUNT 340 thou/uL (150-400); RBC 3.11 mil/uL (4.50-6.00); RDW 18.2 % (10.5-14.5); WBC 16.9 thou/uL (4.0-11.0)
[2019-01-26 04:42] LABS: CREATININE 1.1 mg/dL (0.7-1.3)
[2019-01-26 04:44] LABS: POTASSIUM 5.3 mmol/L (3.5-5.1)
[2019-01-26 04:52] LABS: ALBUMIN 2.8 g/dL (3.4-5.0); MAGNESIUM 1.8 mg/dL (1.8-2.4); TOTAL BILIRUBIN 0.8 mg/dL (<0.1-1.0); TOTAL PROTEIN 6.7 g/dL (6.4-8.2); TROPONIN-I 0.15 ng/mL (<0.06)
--- NOTE | 2019-01-26 04:59 | NUR ---
SPOKE WITH KATHRINE FROM RT - WANTED TO KNOW WHAT KIND OF BED PATIENT WOULD BE ADMITTED TO. NESTOR FROM RT IN DEPARTMENT TO PROVIDE BREATHING TREATMENT THAT WAS ORDERED
[2019-01-26 05:14] LABS: BE(vivo) -3.3 mmol/L (-2 to +3); HCO3 21.3 mmol/L (22.0-26.0); PCO2 36.7 mmHg (35.0-45.0); PO2 58.9 mmHg (80.0-100.0); pH 7.382 (7.360-7.450); sO2 90.3 % (92.0-98.0)
[2019-01-26 05:17] LABS: ANISOCYTOSIS 2+; PLATELET ESTIMATE NORMAL; POIKILOCYTOSIS 1+; POLYCHROMASIA 1+
--- NOTE | 2019-01-26 05:24 | NUR ---
NURSE, MARVEL, GIVEN 'S PHONE NUMBER TO CALL FOR UPDATE AND ADMISSION STATUS
[2019-01-26 06:20] VITALS: BP 100/59
[2019-01-26 06:30] VITALS: BP 105/63
--- NOTE | 2019-01-26 06:48 | NUR ---
Patient arrived from ER at 0630 to the 3W unit in room 349. Patient arrived via bed. Vancomycin started and infusing. Patient attachd to telemetry. Hospital telemetry concerns discussed with patient and consents signed. Bed alarm on and fall precautions put in place.
--- NOTE | 2019-01-26 09:27 | EKG ---
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 : 1955 Requested By: Tony Whitney Order Number: [id number] MD: Toni Montemayor Measurements Intervals [place] Rate: 92 P: 62 MI: 145 QRS: -58 QRSD: 118 T: 76 QT: 351 QTc: 435 Interpretive Statements Sinus rhythm Incomplete RBBB and LAFB Compared to ECG 01/07/2019 07:43:09 No significant change was found Electronically Signed On 01-26-2019 9:27:38 CDT by Toni Montemayor [email or web address] ��������������������������������������������� <ELECTRONICALLY SIGNED> ���������������������������������������� By: Toni Montemayor MD, [facility] ��������������������������������������������� 01/26/19 0927 045 2 Toni Montemayor MD, [facility] /EPI
[2019-01-26] MEDS ORDERED: VENTOLIN HFA 1818 GM INH (11:48)
[2019-01-26] MEDS ORDERED: ZESTRIL40 MG PO (11:49)
[2019-01-26] MEDS ORDERED: PROPRANOLOL 4040 M1 PO (11:50)
[2019-01-26] MEDS ORDERED: HYDROCHLOROTHIA25 M2 PO (11:50)
[2019-01-26] MEDS ORDERED: PIOGLITAZONE30 MG PO (11:50)
[2019-01-26] MEDS ORDERED: FISH OIL 1,001000 M2 PO (11:50)
[2019-01-26] MEDS ORDERED: SYMBICORT160 MCG/4. INH (11:51)
[2019-01-26] MEDS ORDERED: LIPITOR40 MG PO (11:51)
[2019-01-26] MEDS ORDERED: COMBIVENT RESPIM4 GM INH (11:51)
[2019-01-26] MEDS ORDERED: BENZTROPINE MES1 MG PO (12:05)
[2019-01-26] MEDS ORDERED: SAPHRIS10 MG SUBLING (12:06)
[2019-01-26] MEDS ORDERED: LEXAPRO20 MG PO (12:06)
[2019-01-26] MEDS ORDERED: OTHER PHARMACY (12:08)
[2019-01-26 12:18] VITALS: BP 102/61
[2019-01-26] MEDS ORDERED: CETIRIZINE HCL5 MG PO (12:21)
--- NOTE | 2019-01-26 13:23 | NUR ---
ASSESSMENT: CM REVIEWED CHART AND MET WITH PATIENT AT THE BEDSIDE. PT WAS JUST RECENTLY AT [facility] AND DISCHARGED ON 01/11 BACK TO HIS HOME. PT HAS NO RUNNING WATER OR ELECTRICITY AT HIS HOME CURRENTLY AND REPORTS IT HAS BEEN THAT WAY ABOUT ABOUT 3 MONTHS OR SO. CM ASKED IF PATIENT HAD FOLLOWED UP OR CALLED ANY OF THE MULTIPLE DIFFERENT RESOURCES CM PROVIDED HIM WITH LAST ADMISSION THAT HELPS PATIENTS GET THEIR POWER AND WATER BACK ON WITH ASSISTANCE AND COVERAGE. HE STATED THAT HE HAD NOT. CM ALSO CONTACTED [employer] LAST ADMISSION AND HIS CASE WAS PASSED ON TO THE REGIONAL OFFICE. CM ASKED IF PATIENT HAD FOLLOWED UP ON [employer] AND HE STATED NO. CM ATTEMPTED TO CONTACT [employer] [phone] TO SEE WHERE PATIENTS CASE WAS. PT REPORTS HE LIVES IN THE HOME WITH HIS AND IT IS A SINGLE STORY HOME. PT USES A CANE FOR AMBULATION. PT WAS PROVIDED WITH 2 WEEKS OF OXYGEN VOUCHERED THROUGH CASE MANAGEMENT THROUGH PROVIDER [employer] AT DISCHARGE ON 01/11 AND WAS INSTRUCTED TO FOLLOW UP AND WOULD HAVE TO PAY FOR IT THERE ON AFTER. PT STATES HE HAS NOT HAD ANY FOLLOW UP. CM REACHED OUT TO PROVIDER [employer] STATING HIS LAST DAY TO BE SUPPLIED WAS 01/25 AND THAT EQUIPTMENT MAY BE PICKED UP ANYTIME. CM DISCUSSED ROLE. PT STATING HE REALLY NEEDS HIS POWER/ELECTRICITY BACK ON. CM INSTRUCTED PATIENT THAT HE MUST FOLLOW UP ON THE RESOURCES PROVIDED. PT/OT TO SEE PATIENT TO SEE WHETHER HE QUALIFIES FOR SNF AT DISCHARGE. CM WILL CONTINUE TO FOLLOW TO ASSIST NEEDED.
[2019-01-26 15:19] VITALS: BP 109/66
--- NOTE | 2019-01-26 18:19 | NUR ---
PATIENT ADMITTED TO ROOM FROM. HE IS ALERT ORIENTED X4. HE DOES HAVE DIFFICULTIES BREATHING WITH MINOR EXERTION. HAS RESTED IN BED THROUGH THE DAY AFTER HAVING A SHOWER EARLIER IN SHIFT. HAS A GOOD APPETITE. NOW SLEEPING. HERE TO VISIT. WILL CONT WITH PLAN OF CARE.
[2019-01-26 18:55] VITALS: BP 109/61
--- NOTE | 2019-01-27 03:29 | NUR ---
pt is easily awakened, his stays at the bedside. consent oobtained for bronch procedure in the morning. he and his are agreeable to having this done. complained of back pain at the begining of the shift. he is effectively controlling pain with the use of the hydrocodone. careplan reviewed. he is npo for procedure in the am.
[2019-01-27 04:09] VITALS: BP 122/52
[2019-01-27 06:04] LABS: BASOPHILS 0.1 % (0.0-2.0); WBC 10.9 thou/uL (4.0-11.0)
[2019-01-27 06:06] LABS: ABSOLUTE NEUTROPHILS 10.1 thou/uL (1.4-8.2); LYMPHOCYTES 5.9 % (24.0-44.0); MCH 29.5 pg (26.0-34.0); MCHC 33.1 g/dL (28.0-37.0); MCV 89.2 fL (80.0-100.0); MONOCYTES 1.2 % (1.0-8.0); POLYS 92.8 % (36.0-66.0); RBC 2.17 mil/uL (4.50-6.00); RDW 18.2 % (10.5-14.5)
[2019-01-27 06:14] LABS: CALCIUM 8.4 mg/dL (8.5-10.1); MAGNESIUM 1.7 mg/dL (1.8-2.4); POTASSIUM 4.6 mmol/L (3.5-5.1)
[2019-01-27 06:21] LABS: HEMATOCRIT 19.3 % (42.0-52.0); HEMOGLOBIN 6.4 gm/dL (14.0-18.0)
[2019-01-27 06:22] LABS: PLATELET COUNT 247 thou/uL (150-400)
--- NOTE | 2019-01-27 06:47 | NUR ---
new iv started RT forearm #22, for procedure (bronch) this morning.
--- NOTE | 2019-01-27 06:49 | NUR ---
notified provider regarding the 6.4 hemoglobin on this morning labs. provider ordered a repeat H&H prior to ordering PRBC's
[2019-01-27 07:00] LABS: HEMATOCRIT 18.8 % (42.0-52.0); HEMOGLOBIN 6.3 gm/dL (14.0-18.0)
[2019-01-27 07:06] VITALS: BP 93/53
[2019-01-27 08:00] LABS: ANISOCYTOSIS 2+; HYPOCHROMASIA 1+; PLATELET ESTIMATE NORMAL; POIKILOCYTOSIS SLIGHT; POLYCHROMASIA SLIGHT
[2019-01-27 10:29] VITALS: BP 102/58; BP 107/58
[2019-01-27 11:06] VITALS: BP 106/53
[2019-01-27 13:21] LABS: HEMATOCRIT 22.5 % (42.0-52.0); HEMOGLOBIN 7.5 gm/dL (14.0-18.0)
[2019-01-27 16:06] VITALS: BP 121/56
[2019-01-27 19:25] VITALS: BP 122/65
--- NOTE | 2019-01-28 03:11 | NUR ---
PT HAS BEEN AWAKE MOST OF THE NIGHT. HE DID TAKE HIS PO PAIN MEDICATION, WITH EFFECTIVE CONTROL OF PAIN. ENCOURAGED HIM TO TURN SIDE TO SIDE OR ALLOW A PILLOW BEHING HIS BACK. HE DOES NOT WANT TO GO TO HIS SIDE. CAREPLAN REVIEWED. COOPERATIVE AND FRIENDLY, STAYS AT BEDSIDE.
[2019-01-28 04:10] VITALS: BP 117/58
--- NOTE | 2019-01-28 05:39 | NUR ---
PT IS ASKING FOR CHOCOLATE MILK. I RECCOMENDED THAT HE ASK FOR ENSURE OR A SUPPLEMENT SHAKE.
[2019-01-28 07:37] VITALS: BP 119/63
[2019-01-28 09:19] LABS: HEMATOCRIT 25.4 % (42.0-52.0); HEMOGLOBIN 8.3 gm/dL (14.0-18.0); MCH 29.7 pg (26.0-34.0); MCHC 32.5 g/dL (28.0-37.0); MCV 91.5 fL (80.0-100.0); RBC 2.78 mil/uL (4.50-6.00); RDW 17.5 % (10.5-14.5); WBC 16.4 thou/uL (4.0-11.0)
[2019-01-28 09:56] LABS: CALCIUM 8.4 mg/dL (8.5-10.1); CREATININE 1.1 mg/dL (0.7-1.3)
--- NOTE | 2019-01-28 11:04 | NUR ---
Assumed pt care this am, on 3L O2 vis NC, sob has been noted upon minimal exertion. Labs monitored Hgb at 7.5, no signs of distress has been noted. Pt is able to use the commode and urinal. is at the bedside, and maybe demanding at times. Reminded the pt, and visitors on the diet the pt is on. POC followed.
[2019-01-28 11:14] VITALS: BP 121/67
[2019-01-28 16:10] VITALS: BP 120/71
[2019-01-28 19:15] VITALS: BP 127/64
[2019-01-29] VITALS (8 sets, daily range): BP systolic 117–145; BP diastolic 62–78
[2019-01-29 05:13] LABS: HEMATOCRIT 21.1 % (42.0-52.0); HEMOGLOBIN 6.8 gm/dL (14.0-18.0); MCHC 32.1 g/dL (28.0-37.0); MCV 90.4 fL (80.0-100.0); RBC 2.34 mil/uL (4.50-6.00); RDW 17.6 % (10.5-14.5); WBC 11.9 thou/uL (4.0-11.0)
[2019-01-29 05:23] LABS: CALCIUM 8.2 mg/dL (8.5-10.1); CREATININE 0.8 mg/dL (0.7-1.3); POTASSIUM 4.9 mmol/L (3.5-5.1)
--- NOTE | 2019-01-29 06:01 | NUR ---
FOLLOWING POC WITH [facility]. PT HAS PAIN COMPLAINTS ASSOCIATED WITH KNEES. GAVE PO HYDROCODONE WITH EFFECTIVE RESULTS, AND ALLOWED PT TO SLEEP MOST OF EVENING. OF PT ROOMING IN. HER REQUEST TO NOC DID NOT ARISE, ONLY TO SWEDGER. SWEDGER STATED OF PT WANTS [facility] TO SUPPLY HER WITH SOME BRIEFS. I EDUCATED SWEDGER THAT WE CANNOT PROVIDE A BRIEF TO THE . ISSUE NEVER CAME UP AGAIN. BLOOD SUGARS WERE 231 AT 2100. HOURLY ROUNDING AND CALL LIGHT WITHIN REACH.
--- NOTE | 2019-01-29 06:12 | NUR ---
CRITICAL LAB RECEIVED OF HgB 6.7. [facility] PROVIDER [facility] [employer]. ORDERS IN PROCESS FOR ONE UNIT OF PRBC PER PROTOCOL. LAB IN PROCESS OF TYPE AND SCREENING AND VERBAL COMFIRMATION THAT UNIT IS READY. WILL CONTINUE TO MONITOR.
[2019-01-29 12:49] LABS: HEMOGLOBIN 8.6 gm/dL (14.0-18.0); MCH 29.8 pg (26.0-34.0); MCHC 33.1 g/dL (28.0-37.0); MCV 90.1 fL (80.0-100.0); RBC 2.89 mil/uL (4.50-6.00); RDW 16.8 % (10.5-14.5); WBC 13.6 thou/uL (4.0-11.0)
--- NOTE | 2019-01-29 18:10 | NUR ---
Assumed pt care this am, blood transfusion completed with no signs or symptoms of distress or side effects. VS have been stable and Hgb has risen up to 8.6. Pain was verbalized and medication was given with temporary relief. Seen by Dr. Westfall, GI consults called out, labs in and completed. POC follwed, pain and is partially resolved. No other issued have been identified. Spouse is at the bedside and would demand briefs, food, drink and asked to be taken cared of. Informed her and the pt that we are to care for the pt and not the family memeber, behavious still persisted through out the day, informed hourse supervisor final. Spouse had mentioned she cannot go home alone amd has no food there either. Spouse has been staying in the pt room 15/03 amd has been using the facilities as well. HS informed the spoue and pt that spouse may continue this behavious and HS suggested she go home and or have a friend pick her up so that she could take care of herself.
--- NOTE | 2019-01-29 19:31 | NUR ---
LAB CALLED WITH CRITICAL VANCO TROUGH OF 22. CALLED PHARMACY TO COMMUNICATE RESULTS. SPOKE WITH LULU. WILL LOWER DOSE FOR NEXT SCHEDULED DOSE.
[2019-01-30 01:05] LABS: HEMOGLOBIN 6.6 g/dL (13.0-17.7)
[2019-01-30 03:44] VITALS: BP 151/75
--- NOTE | 2019-01-30 05:25 | NUR ---
HOURLY ROUNDING. PT NONCOMPLIANT MULTIPLE TIMES THROUGHOUT SHIFT AND REMOVING OXYGEN. EDUCATED PT ON BENEFITS AND THE NEED TO KEEP IT ON. PT CALLED OUT ONE TIME FOR COFFEE AT 0300. VSS AND MONITORING LABS FOR HgB. GAVE PO PAIN MEDICATION X1. CRITICAL LAB RESULTED FROM VANCO TROUGH. NEW DOSAGE ON VANCO NOW ORDERED. PT CAN USE CALL LIGHT EFFECTIVELY AND TO EXPRESS HIS NEEDS.
[2019-01-30 05:33] LABS: APTT 24.6 Seconds (24.5-32.8); INR 1.1; PROTIME 11.6 Seconds (9.3-11.4)
[2019-01-30 05:39] LABS: ALBUMIN 2.3 g/dL (3.4-5.0); CREATININE 0.8 mg/dL (0.7-1.3); POTASSIUM 4.6 mmol/L (3.5-5.1); TOTAL BILIRUBIN 0.8 mg/dL (<0.1-1.0); TOTAL PROTEIN 5.1 g/dL (6.4-8.2)
[2019-01-30 07:14] VITALS: BP 136/64
--- NOTE | 2019-01-30 14:34 | NUR ---
SW reviewed chart and spoke with nursing and attending physician. Awaiting bronchoscopy when Hgb is stable. LIO met with pt at bedside to discuss discharge plan. Pt's not present during time of SW visit. Pt states he will feel strong enough to return home. SW discussed recommendation for HH services. Pt is agreeable with HH referral. Options provided to pt. No preference voiced. SW confirmed pt's home address. Patient Vendor Choice Form signed and placed on chart. LIO notified intake at [facility] of new referral. LIO is following to assist as needed with discharge planning.
--- NOTE | 2019-01-30 15:34 | NUR ---
NO CHANGE SINCE AM ASSESMENT. PAIN MANAGED BY MEDS ORDERED- SEE MAR. PT ON CLEARS. WILL START BOWEL PREP THIS AFTERNOON. PLANS FOR EGD/COLONOSCOPY ANI. AT BEDSIDE. WILL CONT. TO MONITOR.
[2019-01-30 15:53] VITALS: BP 133/71
[2019-01-30 19:15] VITALS: BP 139/83
[2019-01-31 01:16] VITALS: BP 139/83
[2019-01-31 03:45] VITALS: BP 121/75
[2019-01-31 05:26] LABS: HEMOGLOBIN 7.8 gm/dL (14.0-18.0); MCH 29.1 pg (26.0-34.0); MCHC 32.3 g/dL (28.0-37.0); RBC 2.67 mil/uL (4.50-6.00); WBC 13.3 thou/uL (4.0-11.0)
[2019-01-31 05:46] LABS: CALCIUM 8.4 mg/dL (8.5-10.1); CREATININE 0.8 mg/dL (0.7-1.3); MAGNESIUM 1.8 mg/dL (1.8-2.4); POTASSIUM 4.2 mmol/L (3.5-5.1)
--- NOTE | 2019-01-31 06:20 | NUR ---
PT IS VERY NON COMPLIANT WITH OXYGEN VIA NC, AND DRINKING ALL OF HIS BOWEL PREP. 3150ML IS WHAT HAS BEEN CONSUMED. STOOL SAMPLE COLLECTED. ROUNDED EVERY 30MIN TO GET PT TO DRINK. PT YELLS AND MAKES EXCUSES. OVER THE SHIFT THE PT HAD 2 LARGE LOOSE DARK BROWN BM'S. NO INSULIN WAS GIVEN AT 2100 DUE TO NPO STATUS AT 2400. PT HAS BEEN CALLING FOR LAST HOUR FOR ORAL PAIN MEDICATION. EDUCATED PT THAT HE IS NPO AND HAVING A PROCEDURE THIS AM PAIN MEDICATION IS NOT TO BE GIVEN. FOLLOWING POC. PT HOME MEDICATION SHEET NEEDS TO BE SIGNED BEFORE IT CAN BE GIVEN TO PT. CONSENT SIGNED FOR BOTH PROCEDURES TODAY AND ON THE FRONT OF THE CHART.
--- NOTE | 2019-01-31 07:10 | NUR ---
spoke to gi doctor about pts non compliance with finishing gi prep. doctor said to cancel colonoscopy today and only do the egd. pt will stay on clear liquid diet and start a new round of bowel cleansing.
[2019-01-31 08:05] VITALS: BP 146/72
[2019-01-31 10:26] LABS: APTT 22.7 Seconds (24.5-32.8); INR 1.1; PROTIME 11.5 Seconds (9.3-11.4)
--- NOTE | 2019-01-31 12:49 | NUR ---
SW reviewed chart and spoke with nursing and attending physician. Pt was unable to complete bowel prep last night for planned EGD/colonoscopy today. Bronch will be completed after EGD/colonoscopy. SW discussed case with intake at [facility]. Pt should be able to return home when medically stable. Awaiting further diagnostic testing to determine pt's prognosis. LIO is following to assist as needed with discharge planning.
--- NOTE | 2019-01-31 15:51 | NUR ---
PT RESTING IN BED SLEEPING IN ROLL A WAY IN HIS ROOM. PT IS DRINKING MIRLAX MIXED WITH GATERAID. BLOOD SUGARS MONITORED CONT ON CLEAR LIQUIDS UNTIL NPO AT MIDNIGHT. HAD PRN PAIN MED AND IV ABT ORDERED. HAS BEEN PLEASANT AND COORPERATIVE WITH CARE.
[2019-01-31 16:01] VITALS: BP 132/63
[2019-01-31 19:19] VITALS: BP 130/65
[2019-02-01 05:01] VITALS: BP 166/84
--- NOTE | 2019-02-01 06:14 | NUR ---
Pt. requested pain med for low back pain with some relief. He stated he slept well during the night. O2 at 3L/NC and does get short of breath with exertion. Bed alarm on for safety. at bedside. Completed miralax/gatorade bowel prep last night Before MN. He had several loose stools ,dark grren with some specks of maroon colored. Kept NPO for procedure today.Will continue to monitor.
[2019-02-01 07:37] VITALS: BP 140/75
--- NOTE | 2019-02-01 07:59 | NUR ---
Dr. Maria notified that last bm this am still dark green liquid with specks of maroon colored and light red mucusy bm. tap water enema ordered x2. First one given with large liquid , light brownish and some mucusy bm. Day RN updated and will give the 2nd one.
[2019-02-01 10:43] VITALS: BP 140/75
[2019-02-01 12:07] VITALS: BP 146/75
--- NOTE | 2019-02-01 12:13 | NUR ---
SW reviewed chart and spoke with nursing and attending physician. Pt had EGD/colonoscopy today and will have bronchoscopy tomorrow. Plan is for pt to discharge home when medically stable. LIO is following to assist as needed with discharge planning.
--- NOTE | 2019-02-01 16:04 | NUR ---
WOUND CONSULT; ROUNDING WITH DR ZËO REYES AND RODOLFO DONOVAN. A PERIRECTAL WOUND WAS IDENTIFIED. ETIOLOGY IS UNKNOWN. A COLORECTAL SURGEON WILL ASSESS TO DETERMINE ETIOLOGY. RECOMMENDATIONS; NONE AT THIS TIME. DISCUSSED WITH RN
[2019-02-01 16:25] VITALS: BP 146/75
[2019-02-01 19:33] VITALS: BP 124/64
--- NOTE | 2019-02-01 20:02 | NUR ---
SACRAL ABSCESS NOTED IN GI LAB..WOUND CARE TEAM ROUNDED AND DR PAYNE WILL SEE PATIENT TONIGHT. PICTURE TAKEN..TO PLACE ZGUARD AFTER SEEN BY DR PAYNE.
--- NOTE | 2019-02-02 04:21 | NUR ---
Patient making progress towards outcome goals. Vital signs and rhythm stable. High fall risks, fall precautions in place. Calls out appropriately for needs. No active signs of bleeding.
[2019-02-02 05:16] VITALS: BP 137/69
[2019-02-02 07:34] VITALS: BP 127/70
[2019-02-02] MEDS ORDERED: MUCINEX600 MG PO (13:03)
[2019-02-02] MEDS ORDERED: PROTONIX 20 MG20 M1 PO (13:03)
[2019-02-02] MEDS ORDERED: PREDNISONE 20 M20 MG PO (13:03)
[2019-02-02] MEDS ORDERED: ACIDOPHILUS1 EAC4 PO (13:03)
[2019-02-02] MEDS ORDERED: FLUCONAZOLE 10100 MG PO (13:03)
[2019-02-02] MEDS ORDERED: AUGMENTIN 875-1 EACH PO (13:03)
[2019-02-02 14:08] VITALS: BP 127/70
[2019-02-02 14:40] VITALS: BP 127/70
--- NOTE | 2019-02-02 14:43 | NUR ---
DISCHARGE NOTE: LIO reviewed chart and spoke with nursing and attending physician. Pt is medically stable for discharge home today with HH services. Pt to have a bronchoscopy as an outpatient. LIO spoke with [facility] liaison regarding home O2. At time of last discharge, Case Mgmt vouched for portable oxygen tanks, as pt does not have electricity for a concentrator. 2 Weeks vouched for at that time. Per [facility], pt has several more full tanks at home. Director of Case Mgmt authorized another 2 weeks of portable O2 tanks. LIO met with pt and at bedside to discuss discharge plan. Pt and are agreeable with HH services. SW confirmed pt's home address and phone number. SW discussed need for primary care physician to follow after pt is discharged. Pt and state that pt has seen Dr. Khushbu Guadarrama in the past and will be following up with Dr. Guadarrama post discharge. SW offered to arrange an appt. Pt's states she will make an appt as soon as they get home. LIO explained that [facility] needs to contacted when the O2 tanks are running low. Contact info for [facility] placed in pt's discharge summary. Pt's states that she did attempt to contact the Director Inbound Sales info that was provided last time to she and pt, but the numbers were all out of services. SW offered to provide the info to pt/spouse again. Pt's spouse declined offer. Per pt and spouse, they will be moving into an apt on 02/20/19 that will have paid utilities. Pt's states they will have transportation home around 1530. LIO placed call to [facility] to make hotline report due to concerns regarding pt's living conditions. Report give to Akilah at [phone]. LIO also contacted [facility] and left message for Juhi Coelho, who has been assigned to pt for a current or closed case. No additional SW needs identified at this time, but is available to assist should needs arise.
--- NOTE | 2019-02-02 15:30 | NUR ---
ASSUMED CARE OF PT AT 0700. ASSESSMENT CHARTED. AT BEDSIDE. NEW DISCHARGE ORDERS WITH HH SERVICES. CASE MANAGEMENT SET UP HH. NEW SCRIPTS AND CARENOTES GIVEN TO PT. HOME MEDS GIVEN TO PT. IV X2 REMOVED, NO ACTIVE BLEEDING. DISCHARGE INSTRUCTIONS AND FOLLOW UP INFORMATION GIVEN TO PT AND AT BEDSIDE. FAMILY TO PICK PT UP. PT LEFT IN PERSONAL CLOTHES WITH BELONGINGS IN STABLE CONDITION VIA WHEELCHAIR ESCORT AT 15:30. STATE NO QUESTIONS OR CONCERNS.
--- NOTE | 2019-02-03 10:41 | NUR ---
POST-DISCHARGE: LIO received call back from Juhi at [facility] ([phone]) regarding pt's open case. Juhi states she has been working with pt and spouse. Confirmed that pt and spouse do have new housing available to them on 02/20. LIO provided update regarding pt's clinical condition and need for follow up. Juhi states she will follow up with pt and family and help them with getting HCBS services once they are in their new home. LIO is available to assist should needs arise.
--- NOTE | 2019-02-04 08:24 | O ---
[facility] [place] [address] OPERATIVE REPORT Name: ANGIEDIA Acosta Room #: 349-I DIS IN M.R.#: [id number] Admission: 01/26/19 ������������������ Attend Phys: Tariq Nguyen MD Discharge: 02/02/19 ������������������ Date of : 55 Report #: [id number] THIS REPORT FOR: //name// CC: FAM unknown Tariq Nguyen DATE OF SERVICE: 02/02/2019 PREOPERATIVE DIAGNOSES: Right anterior perianal ulcer with mass, rule out anal carcinoma. POSTOPERATIVE DIAGNOSES: Right anterior perianal ulcerated mass, rule out anal carcinoma. PROCEDURE: Bedside incisional biopsy of perianal ulcerated mass. RESEARCH GEOLOGIST: Bry Do M.D. ANESTHESIA: Local 1% lidocaine with epinephrine. 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 Exam shows a 1.5-cm hard oval lesion at the anal verge in the right anterior position with central ulceration and raised edges. Clinically, this is highly suspicious for anal carcinoma. Informed consent was obtained for biopsy of the lesion. DESCRIPTION OF PROCEDURE: The area was locally infiltrated with 1% lidocaine with epinephrine. A 15 blade scalpel was used to perform an incisional biopsy including the central ulcerated area and the raised skin edge. A biopsy measuring 4 mm x 2 mm x 3 mm deep was removed and sent to surgical pathology for permanent section. Hemostasis was achieved with silver nitrate. The patient tolerated the procedure well. Further plans pending pathologic diagnosis. Clinically, this is an anal carcinoma. ��������������������������������������������� <ELECTRONICALLY SIGNED> ���������������������������������������� By: Bry Do MD ��������������������������������������������� 02/04/19 0824 [id number] Bry Do MD /nt
== END 2019-02-02 15:43 | disposition home health service (06) | DRG 177 ==
LOC: ER 03:49 → 3W 04:47 → EROBS 04:47 → 3W 06:20 → ENTRNSPT 02-02 15:15 → EDTRNSPTSTS 02-02 15:17 → 3W 02-02 15:43
PROVIDERS: Anesthesiology; Emergency Medicine; Internal Medicine; Internal Medicine Pulmonary Disease; Nurse Practitioner; Nurse Practitioner Family; ADMIT Internal Medicine
DX: J15.6 Pneumonia due to other Gram-negative bacteria (principal); J96.21 Acute and chronic respiratory failure with hypoxia; G92 Toxic encephalopathy; E43 Unspecified severe protein-calorie malnutrition; I21.4 Non-ST elevation (NSTEMI) myocardial infarction; K22.10 Ulcer of esophagus without bleeding; J44.1 Chronic obstructive pulmonary disease with (acute) exacerbation; K62.6 Ulcer of anus and rectum; B37.81 Candidal esophagitis; J44.0 Chronic obstructive pulmonary disease with (acute) lower respiratory infection; E11.9 Type 2 diabetes mellitus without complications; F32.9 Major depressive disorder, single episode, unspecified; F41.9 Anxiety disorder, unspecified; K62.9 Disease of anus and rectum, unspecified; K64.8 Other hemorrhoids; K21.0 Gastro-esophageal reflux disease with esophagitis; K31.819 Angiodysplasia of stomach and duodenum without bleeding; K29.80 Duodenitis without bleeding; I10 Essential (primary) hypertension; E78.5 Hyperlipidemia, unspecified; F17.210 Nicotine dependence, cigarettes, uncomplicated; E87.5 Hyperkalemia; G89.29 Other chronic pain; R59.1 Generalized enlarged lymph nodes; R13.10 Dysphagia, unspecified; R91.8 Other nonspecific abnormal finding of lung field; D50.9 Iron deficiency anemia, unspecified; R91.1 Solitary pulmonary nodule; Z68.25 Body mass index [BMI] 25.0-25.9, adult; Z90.49 Acquired absence of other specified parts of digestive tract; Z79.891 Long term (current) use of opiate analgesic; I25.2 Old myocardial infarction; Z99.81 Dependence on supplemental oxygen; Z81.8 Family history of other mental and behavioral disorders; Z83.6 Family history of other diseases of the respiratory system; Z71.6 Tobacco abuse counseling
CPT/HCPCS: 10879; 62110; 62900; 70005

== ENCOUNTER 2019-02-06 20:01 | Inpatient (IN) | payer OTHER ==
[~2019-02-06] VITALS: Ht 172.7 cm; Wt 64.0 kg
--- NOTE | ~2019-02-06 | HC ---
[facility] [place] [address] CONSULTATION Name: DIA ADAMS Room #: 356-P ADM IN M.R.#: [id number] Admission: 02/06/19 ������������������ Attend Phys: Eliazar Conrad DO Discharge: ������������������ Date of : 55 Report #: [id number] THIS REPORT FOR: //name// CC: FAM unknown Eliazar Nguyen MD PALLIATIVE CARE CONSULTATION REQUESTING PHYSICIAN: Dr. Nguyen. CHIEF COMPLAINT: Colon cancer with metastasis. HISTORY OF PRESENT ILLNESS: The patient is a 63-year-old male presented on 02/06/2019 to [facility]. At such time, he had been found to have on imaging scans of his abdomen what appeared to be areas in his lungs consistent with metastatic colon cancer. Additionally, he had had areas in the lumbar spine and sacrum consistent also with metastatic lesions. The patient also had a GI bleed again predisposing to the diagnosis of colon cancer. He has met with Dr. Brasher with Oncology. Unfortunately, his prognosis is poor. She had stated that prior to starting any type of chemotherapy, he would have to have a significant improvement in his strength. They were talking about the potential for rehabilitation, [place] [facility] [place], versus inpatient rehabilitation. At this time, unfortunately they have a home environment that is unstable at this time. The spouse reports that recently condemned home. She will be able to stay with her friend starting on Wednesday. He would not be able to return to the home environment given his global weakness. The patient is in and out of being able to stay awake for my conversation, able to answer some questions appropriately. He denies significant pain that is uncontrolled at this time. Denies shortness of breath. Denies abdominal pain. Denies nausea. Denies constipation. PAST MEDICAL HISTORY: Significant for COPD, [id number] hypoxic respiratory failure, anemia, protein-calorie malnutrition, and cirrhosis, which was found incidentally on imaging. Also, renal infarcts. MEDICATIONS: Protonix, albuterol, MiraLax, Xanax, Zosyn, trazodone, propranolol, Claritin, lisinopril, fluconazole, Lexapro, Lipitor, prednisone, and benztropine. SOCIAL HISTORY: His spouse, Joan Adams is present for my interview as well as a friend. The patient is a prior smoker, history of possible opioid abuse, and dependence in the past as well. He has again a housing situation as noted above, currently listed as full code. PRIMARY CARE PHYSICIAN: Dr[place] [address] CONSULTATION Name: DIA ADAMS Room #: 356-P [facility] IN .R.#: [id number] Admission: 02/06/19 ������������������ Attend Phys: Eliazar Conrad DO Discharge: ������������������ Date of : 55 Report #: [id number] PAST SURGICAL HISTORY: Appendectomy. FAMILY HISTORY: Noncontributory. REVIEW OF SYSTEMS: GENERAL: He denies any fever or chills. HEENT: Denies any visual changes. CARDIOVASCULAR: Denies chest pain or palpitations. RESPIRATORY: Does report some shortness of breath. He is stable, though with current oxygen. ABDOMEN: He denies nausea, vomiting, constipation, or diarrhea. EXTREMITIES: He does report generalized weakness. PHYSICAL EXAMINATION: VITAL SIGNS: Temperature 36.2, pulse 66, respirations 20, blood pressure 115/63, and 88% on 2 liter nasal cannula. GENERAL: The patient appears to be alert at times, certainly falling asleep multiple times during my interview. He is in no acute distress, however. HEENT: No scleral icterus noted. No conjunctival injection. CARDIOVASCULAR: Regular rate and rhythm without murmur. LUNGS: Currently clear to auscultation anteriorly. ABDOMEN: Soft, nontender to palpation except in lower quadrants bilaterally, mild tenderness. LABORATORY DATA: Hemoglobin 8.9, white blood cell 13.0, and platelets 86. Creatinine 0.6. ASSESSMENT AND PLAN: Colon cancer, currently with metastasis. Unfortunately, again stated that he has an overall poor prognosis with this. I have discussed this extensively with the patient and spouse. The patient is aware of palliative care and hospice care options, although he is difficult to say how much understanding he has of this. Also, there appears to be some cognitive impairment, possibly with his spouse or a prior actual intellectual disability. She does not appear to be able to grasp all concepts of this type of care. They did understand code status. Did discuss that extensively with both of them and they wish him to be a DNR at this time. I have changed his code status now. I do feel that they will need further conversations with regards to these options. I have given them my contact information with regards to this. He appears to be stable although on comfort with regards to the treatment he is receiving at this time and they wish to pursue rehab consistently now. Please contact me for any questions regarding this consultation. Thank you very much. [facility] [address] [address] CONSULTATION Name: DIA ADAMS Room #: 356-P ADM IN M.R.#: [id number] Admission: 02/06/19 ������������������ Attend Phys: Eliazar Conrad DO Discharge: ������������������ Date of : 55 Report #: [id number] I spent approximately 40 minutes on discussion of advanced care planning today. ��������������������������������������������� ���������������������������������������� By: ��������������������������������������������� 0854 1110 Thierry Headley DO /nt
[~2019-02-06 20:01] MED LIST changes: +ACIDOPHILUS1 EAC4 PO; +AUGMENTIN 875-1 EACH PO; +BENZTROPINE MES1 MG PO; +CETIRIZINE HCL5 MG PO; +COMBIVENT RESPIM4 GM INH; +FISH OIL 1,001000 M2 PO; +FLUCONAZOLE 10100 MG PO; +HYDROCHLOROTHIA25 M2 PO; +LEXAPRO20 MG PO; +LIPITOR40 MG PO; +MUCINEX600 MG PO; +OTHER PHARMACY; +PIOGLITAZONE30 MG PO; +PREDNISONE 20 M20 MG PO; +PROPRANOLOL 4040 M1 PO; +PROTONIX 20 MG20 M1 PO; +SAPHRIS10 MG SUBLING; +SYMBICORT160 MCG/4. INH; +VENTOLIN HFA 1818 GM INH; +ZESTRIL40 MG PO
[2019-02-06 20:02] VITALS: BP 133/68
[2019-02-06 21:01] LABS: EOSINOPHILS 0.1 % (0.0-3.0); PLATELET COUNT 155 thou/uL (150-400)
[2019-02-06 21:02] LABS: ABSOLUTE NEUTROPHILS 15.1 thou/uL (1.4-8.2); BASOPHILS 0.6 % (0.0-2.0); LYMPHOCYTES 4.6 % (24.0-44.0); MCH 27.6 pg (26.0-34.0); MCHC 30.8 g/dL (28.0-37.0); MCV 89.6 fL (80.0-100.0); MONOCYTES 5.9 % (1.0-8.0); POLYS 88.8 % (36.0-66.0); RBC 2.22 mil/uL (4.50-6.00); RDW 17.4 % (10.5-14.5)
[2019-02-06 21:04] LABS: HEMATOCRIT 19.9 % (42.0-52.0); HEMOGLOBIN 6.1 gm/dL (14.0-18.0)
[2019-02-06 21:15] LABS: CALCIUM 7.9 mg/dL (8.5-10.1); CREATININE 0.8 mg/dL (0.7-1.3); POTASSIUM 4.8 mmol/L (3.5-5.1)
[2019-02-06 21:17] LABS: TROPONIN-I 0.1 ng/mL (<0.06)
[2019-02-07] VITALS (8 sets, daily range): BP systolic 116–145; BP diastolic 58–97
[2019-02-07 04:58] LABS: HEMOGLOBIN 6.9 gm/dL (14.0-18.0)
[2019-02-07 04:59] LABS: HEMATOCRIT 21.3 % (42.0-52.0)
--- NOTE | 2019-02-07 07:42 | EKG ---
[address] 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 shetty : 1955 Requested By: Dia Aceves Order Number: [id number] MD: Toni Montemayor Measurements Intervals [place] Rate: 99 P: 59 NV: 135 QRS: -47 QRSD: 111 T: 66 QT: 374 QTc: 480 Interpretive Statements Sinus rhythm LAD, consider left anterior fascicular block RSR' in V1 or V2, right VCD Compared to ECG 01/26/2019 04:53:20 axis has shifted rightward Electronically Signed On 02-07-2019 7:42:06 CDT by Toni Montemayor [email or web address] ��������������������������������������������� <ELECTRONICALLY SIGNED> ���������������������������������������� By: Toni Montemayor MD, [facility] ��������������������������������������������� 02/07/19 0742 17 17 Toni Montemayor MD, [facility] /EPI
--- NOTE | 2019-02-07 15:30 | NUR ---
report received from Bradley/steve @ 1250. pt received to room 356 via cart w/ at bs @ ~1510. pt requested food and something to drink, clear liquid diet begun. pt denies n/v/d at this time. ivf's begun w/ protonix gtt to rt ac iv access. pt on o2 @ lt nc states he wears 1 lt nc at home. pt's a bs talking on her phone and playing games on her phone. pt states that he has no electricity, water or food at his home. he states the "check" he receives is not enough money to cover his utilities, states "we are flat broke".
--- NOTE | 2019-02-07 16:32 | NUR ---
Received consult due to pt being readmitted from home. Pt was discharged home last week with services. Pt came in with GI bleed. Pt has received blood transfusions. LIO left voice message for Juhi at [facility] ([phone]) to notify of pt's admission. Juhi has been working with pt and . Plan for pt and spouse to move into new housing on 02/20, which would have utilities paid. Pt and spouse have been provided with info regarding social service agencies and community resources to assist with utility assistance. LIO will follow up with pt and spouse tomorrow. LIO is following to assist as needed with discharge planning.
[2019-02-08 03:30] VITALS: BP 131/71
[2019-02-08 05:23] LABS: BASOPHILS 0.2 % (0.0-2.0); HEMATOCRIT 28.1 % (42.0-52.0); LYMPHOCYTES 5.2 % (24.0-44.0); MCH 28.8 pg (26.0-34.0); MCHC 32.9 g/dL (28.0-37.0); MCV 87.3 fL (80.0-100.0); MONOCYTES 6.5 % (1.0-8.0); PLATELET COUNT 104 thou/uL (150-400); POLYS 87.1 % (36.0-66.0); RBC 3.22 mil/uL (4.50-6.00); RDW 16.6 % (10.5-14.5); WBC 18.3 thou/uL (4.0-11.0)
[2019-02-08 05:31] LABS: HEMOGLOBIN 9.2 gm/dL (14.0-18.0)
[2019-02-08 07:45] VITALS: BP 139/76
--- NOTE | 2019-02-08 08:06 | NUR ---
PATIENT IS PROGRESSING SLOWLY IN CARE PLAN. VITAL SIGNS STABLE WITH PATIENT HAVING NO COMPLAINTS OF NAUSEA. PATIENT DID COMPLAIN OF PAIN WHICH WAS TREATED EFFECTIVELY BYU NURSE. BLOOD TRANSFUSION COMPLETED WITHOUT INCIDENT. PATIENT REMAINED ON CLEAR LIQUID DIET. UP WITH ASSISTANCE INCIDENT FREE. CONTINUE PLAN OF CARE.
[2019-02-08 10:43] LABS: ALBUMIN 2.1 g/dL (3.4-5.0); DIRECT BILIRUBIN 0.4 mg/dL (<0.1-0.3); TOTAL BILIRUBIN 1.3 mg/dL (<0.1-1.0); TOTAL PROTEIN 4.4 g/dL (6.4-8.2)
[2019-02-08 11:40] VITALS: BP 128/73
--- NOTE | 2019-02-08 16:07 | NUR ---
INITIAL ASSESSMENT: Received consult for discharge planning. Pt was admitted from home due to anemia/GI bleed. Pt with probable metatstatic cancer. Awaiting biopsy results. Physicians have discussed hospice with pt and , as pt will most likely have a poor prognosis. Pt known to LIO from previous hospitalizations. Pt and spouse live in a home where there are not running utilities (water and electricity). LIO met with pt and at bedside. Introduced role of SW. Pt is alert/orientated x 4. Pt and spouse acknowledge that pt does have extensive cancer. SW discussed hospice services. Pt and spouse are wanting to meet with hospice to discuss options. LIO explained that hospice can be done in the home setting, in a [facility] or in a hospice facility. Both pt and spouse prefer a hospice facility. Options discussed with pt and . Both request referral to [facility]osp[facility] House. LIO faxed info to the hospice house for review and notified liaison, who will be onsite tomorrow after 1130 to meet with pt and and do eval for hospice house. LIO updated nursing and attending physician. LIO spoke with Juhi at [facility] to provide update. [facility] to come see pt and today, as pt and have an open case with [facility]. LIO is following to assist as needed with discharge planning.
--- NOTE | 2019-02-08 16:26 | NUR ---
SOCIAL WORK TALK TO PATIENT AND HOSPICE WILL EVALUATE PT IN THE AM. DR HICKS ASSESS PT AND GAVE OPTION OF HOSPICE CARE VRS OPTION TO TREAT CANCER AGRESSIVELY. WILL CONTINUE TO ASSESS.
[2019-02-08 16:41] VITALS: BP 112/68
[2019-02-08 20:15] VITALS: BP 106/65
[2019-02-08 23:30] VITALS: BP 109/65
[2019-02-09 04:00] VITALS: BP 111/66
[2019-02-09 05:18] LABS: HEMATOCRIT 28.7 % (42.0-52.0); HEMOGLOBIN 9.3 gm/dL (14.0-18.0)
--- NOTE | 2019-02-09 05:32 | NUR ---
PATIENT ALERT AND ORIENTED X4. AT BEDSIDE. C/O PAIN X1, MED GIVEN. RESP EVEN BUT UPPER LOBES COARSE AND LOWER LOBES DIMINISHED. SCHEDULED FOR A MRI OF THE ABD. ACCUCHECK WAS 231, RECIEVED 4 UNITS LISPRO INSULIN. STILL HAS A PROTONIS GTT. SLEPT OFF AND ON DURING NIGHT.
[2019-02-09 07:14] VITALS: BP 107/64
--- NOTE | 2019-02-09 10:53 | NUR ---
ASSUMED CARE OF PT AT 0700. PT IS ALERT AND ORIENTATED BUT FORGETFUL AND SEEMINGLY TOO TIRED TO PROCESS THOUGHTS AT TIMES. SOME ANXIETY. PT DENIED PAIN UPON ASSESSMENT. PT HAS NON-PRODUCTIVE COUGH, NC CURRENTLY ON 1L. HGB REMAINS LOW BUT IS IMPROVED AT 9.3 THIS AM. PT WAS SCHEDULED FOR ABDOMINAL MRI TODAY BUT HAS BEEN CANCELLED IT WAS DETERMINED IT WOULD NOT BE DIAGNOSTICALLY HELPFUL. IS AT BEDSIDE. PT AND ARE AWAITING A CONSULT WITH HOSPICE TO DETERMINE NEXT STEP. WILL CONTINUE TO MONITOR AND ASSESS.
[2019-02-09 11:43] VITALS: BP 109/66
--- NOTE | 2019-02-09 12:35 | NUR ---
SW reviewed chart and spoke with nursing and attending physician. dry cans operator onsite to meet with pt and to discuss hospice services and determine if pt is appropriate for the hospice house. Awaiting input from Hospice at this time. LIO is following to assist as needed with discharge planning.
[2019-02-09 13:15] LABS: MCH 28.6 pg (26.0-34.0); MCHC 32.4 g/dL (28.0-37.0); MCV 88.4 fL (80.0-100.0); RBC 3.25 mil/uL (4.50-6.00); RDW 16.8 % (10.5-14.5); WBC 17.3 thou/uL (4.0-11.0)
[2019-02-09 13:30] LABS: CALCIUM 7.5 mg/dL (8.5-10.1); CREATININE 0.7 mg/dL (0.7-1.3); TOTAL BILIRUBIN 0.8 mg/dL (<0.1-1.0); TOTAL PROTEIN 4.4 g/dL (6.4-8.2)
[2019-02-09 15:26] VITALS: BP 123/69
--- NOTE | 2019-02-09 16:46 | HC ---
[facility] [place] [address] CONSULTATION Name: ANGIEDIA Acosta Room #: 356-P [facility] IN M.R.#: [id number] Admission: 02/06/19 ������������������ Attend Phys: Eliazar Conrad DO Discharge: ������������������ Date of : 55 Report #: [id number] THIS REPORT FOR: //name// CC: FAM unknown Eliazar Conrad DATE OF SERVICE: 02/09/2019 HISTORY OF PRESENT ILLNESS: This 63-year-old frail, debilitated gentleman was admitted several days ago with multiple medical and GI problems and severe chronic diarrhea. He states he had a minor fall one week ago. He states he was seen at another Emergency Department where x-rays of the right foot demonstrated evidence of a possible toe fracture. Today, he notes his foot is much improved, but is still uncomfortable. His spouse notes that he was unable to walk on the foot at the time of his hospital admission and is still concerned there may be an ongoing problem. Objectively, the right foot reveals no obvious significant bruising or swelling. There is only minor discomfort across the forefoot. The toes appear to be well aligned without significant bruising, swelling or deformity. No x-rays at this time are available. I doubt that he has a significant fracture, but may have a nondisplaced fracture of either a metatarsal neck or a toe. I think it is reasonable to go ahead with new x-rays. I will comment further once that is available for review. In the meanwhile, I feel he can be full weightbearing and as active as his comfort and general strength will allow. ��������������������������������������������� <ELECTRONICALLY SIGNED> ���������������������������������������� By: Sim Rodríguez MD ��������������������������������������������� 02/09/19 1646 1156 1218 Sim Rodríguez MD /nt
[2019-02-09 20:50] VITALS: BP 120/69
[2019-02-10 03:58] VITALS: BP 124/71
[2019-02-10 05:46] LABS: HEMATOCRIT 31.1 % (42.0-52.0)
[2019-02-10 08:00] VITALS: BP 132/69
--- NOTE | 2019-02-10 08:02 | NUR ---
PATIENT IS SLOWLY PROGRESSING IN HIS CARE PLAN. VITAL SIGNS STABLE WITH PATIENT HAVING NO COMPLAINTS OF NAUSEA. PATIENT DID COMPLAIN OF BACK PAIN WHICH WAS TREATED WITH MEDICATION AND NON PHARMACOLOGICAL INTERVENTIONS. FULLY ORIENTED BUT FORGETFUL THROUGHOUT SHIFT, PATIENT WAS ABLE TO CALL FOR NEEDS EFFECTIVELY, BUT UNABLE OR UNWILLING TO PARTICIPATE IN CARE. BREATHING STABLE ON LOW LEVEL OXYGEN EVIDENCED BY SPOT OXYGENATION CHECKS. NURSE FOUND WOUND IN PATIENTS RECTAL AREA THIS MORNING AND OBTAINED FRONT OFFICE DIRECTOR CONSULT AND INITIATED TURNS AND BARRIER CREAM APPLICATION. NURSE ALSO ATTEMPTED TO EDUCATE PATIENT ON DIAGNOSIS, BUT PATIENT AND WERE UNABLE TO FULLY COMPREHEND. CONTINUE PLAN OF CARE.
--- NOTE | 2019-02-10 10:18 | NUR ---
LIO notified that site foreman [facility], Candie WillisEmilioSam, was onsite yesterday to meet with pt's , Yelitza. Pt also has an assigned case briefer, Davey, at [facility]. LIO left voice message for Candie ([phone]). LIO is following to assist as needed with discharge planning.
[2019-02-10 11:27] VITALS: BP 119/65
--- NOTE | 2019-02-10 12:41 | NUR ---
WOUND CARE FOLLOW UP; DR REYES SAW PATIENT TODAY. PERIRECTAL CARCINOMA. PT DENIES PAIN. RECOMMENDATION; MAY CLEANSE AREA WITH SOAP AND WATER. DISCUSSED WITH RN
--- NOTE | 2019-02-10 13:43 | NUR ---
ASSUMED CARE OF PT AT 0700. PT'S VS HAVE BEEN STABLE. REMAINS NSR ON TELE. O2 AT 2.5L VIA NC. PT DENIES PAIN. PT IS VISABLY SOB AND CONFIRMS WHEN ASKED. WOUND CARE ROUNDED ON PT AND CONFIRMED THAT ABSCESS-LIKE WOUND IN ANAL AREA IS RECTAL CARCINOMA. ORDERS FOR CARE ENTERED BY PROVIDER. PT IS NOT YET PROGRESSING TOWARD POC GOALS. WILL CONTINUE TO MONITOR AND ASSESS.
[2019-02-10 16:41] VITALS: BP 131/72
[2019-02-10 19:40] VITALS: BP 131/74
--- NOTE | 2019-02-10 20:01 | HC ---
[facility] [place] [address] CONSULTATION Name: ANGIEDIA Room #: 356-P ADM IN M.R.#: [id number] Admission: 02/06/19 ������������������ Attend Phys: Eliazar Conrad DO Discharge: ������������������ Date of : 55 Report #: [id number] THIS REPORT FOR: //name// CC: FAM unknown Eliazar Conrad DATE OF SERVICE: 02/10/2019 CHIEF COMPLAINT: Perianal ulceration, status post biopsy. HISTORY OF PRESENT ILLNESS: This is a 63-year-old male patient with whom I am familiar with from his previous hospitalization. He had a suspicious ulceration in the perianal region. A biopsy was performed at that time which was consistent with anal duct/gland carcinoma. He has been now admitted with acute on chronic anemia and acute blood loss. He received 2 units of packed cells. He has metastatic cancer, likely primary source, perianal carcinoma, being followed by Oncology. He has a history of type 2 diabetes mellitus: The patient denies any pain at this time. He has a relatively flat affect, which is consistent with his demeanor on his last visit. PAST MEDICAL HISTORY: As mentioned in history of present illness. Positive for diabetes, schizophrenia, depression, COPD, ____ opiate dependence, anemia, appendectomy, gastroesophageal reflux disease as well as pulmonary nodules. SOCIAL HISTORY: Positive for smoking cigarettes 1 pack per day for 50 years. No alcohol use. REVIEW OF SYSTEMS: A 14-point review of systems is negative, other than that mentioned in the history of present illness and past medical history. PHYSICAL EXAMINATION: VITAL SIGNS: At this time include temperature 36.7, pulse 70, respiratory rate of 20, blood pressure 119/65. GENERAL: This is a chronically ill-appearing male patient with a flat affect, in no apparent distress. HEENT: Head normocephalic. Nose and throat clear. NECK: Supple. LUNGS: Diminished. HEART: Regular rhythm. ABDOMEN: Soft. Perianal region demonstrates the perianal ulcer in the same position, is slightly larger and deeper, status post biopsy approximately a week ago. It is not infected or contaminated at this time. There is some granulation tissue in the sebastian, but the base is very pale. EXTREMITIES: Without clubbing or cyanosis. NEUROLOGIC: The patient is alert. His orientation is difficult to assess. [address] [address] CONSULTATION Name: DIA ADAMS Room #: 356-P [facility] IN M.R.#: [id number] Admission: 02/06/19 ������������������ Attend Phys: Eliazar Conrad DO Discharge: ������������������ Date of : 55 Report #: [id number] LABORATORY DATA: White blood cell count 17.3, hemoglobin of 10.0, hematocrit 31.1. Sodium 136, potassium 4.0, chloride 105, CO2 of 23, BUN 12, creatinine 0.7, glucose 142, calcium is low at 7.5, albumin is low at 2.0. CLINICAL IMPRESSION: 1. 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 2. Moderate to severe protein-calorie malnutrition. 3. Schizophrenia. 4. Chronic obstructive pulmonary disease. RECOMMENDATIONS: At this point in time, the patient would probably benefit from some additional nutritional support for overall health. The ulcer in the perianal region is in a difficult spot, will certainly be at risk for frequent contamination. I think leaving it open to air would be appropriate and cleansing with saline, soap and water or wound cleanser after each bowel movement and at least once a day. He is being presented with the possibilities of chemoradiation versus hospice and has not made a decision as of yet. At this point in time, I do not think that this wound/ulceration will heal as there is the anal carcinoma in that site. I think we could aim at maintaining him pain free. It is nontender at present and keeping it clean to prevent contamination. I appreciate being asked to see him in consultation. ��������������������������������������������� <ELECTRONICALLY SIGNED> ���������������������������������������� By: Jaya Mak MD ��������������������������������������������� 02/10/192000 1242 1416 Jaya Mak MD /nt
[2019-02-11 04:00] VITALS: BP 130/57
[2019-02-11 07:51] VITALS: BP 132/62
--- NOTE | 2019-02-11 07:58 | NUR ---
PATIENT IS ALERT TO SELF, SITUATION, TIME. PATIENT IS ON 2LNC PRN. PATIENT STATS ARE IS 90%. PATIENT CAN TURN SELF. PATIENTS LUNGS ARE COURSE, CRACKEL LASIX WAS GIVEN. PROVIDER AWARE. PATIENT CAN GET ANXIOUS BUT IS EASY TO REDIRECT. PATIENTS PAIN IS CONTROLLED WITH PAIN MEDICATION. PATIENT WAS GIVEN MIRALAX. LBM 18TH. PATIENT IS NSR ON TELE. PATIENT IS PENDING PLACEMENT. PATIENT IS RESTING COMFORTABLY IN BED. WCM. PATIENT IS NOT PROGRESSING TO GOALS.
[2019-02-11 11:45] VITALS: BP 116/60
[2019-02-11 16:10] VITALS: BP 110/78
--- NOTE | 2019-02-11 19:43 | NUR ---
ASSUMED CARE OF PATIENT AT 0715, REPORT RECEIVED FROM NIGHTSHIFT NURSE. PATIENT ALERT, BUT DID NOT KNOW THE MONTH, DAY OR WHAT HOSPITAL HE WAS IN. AT BEDSIDE ALL DAY. PATIENT UP WITH MINIMAL ASSIST WITH GAIT BELT AND WALKER. PATIENT HAS CANCER WITH METS OVER BODY, DR JOYNER CONSULTED BUT PATIENT REFUSING HOSPICE AT THIS TIME, WANTS TREATMENTS. PATIENT IN ISOLATION DUE TO BED BUGS AT HOME. PATIENT ON OXYGEN PRN, BILATEAL LUNGS COARSE. PATIENT RECEIVES BREATHING TREATMENTS. PATIENT HAS RIGHT IV AND LEFT FOREARM IV IN PLACE, WRAPPED WITH PROTECTIVE DRESSING AND BOTH REMAIN PATENT, PATIENT RECEIVED ZOSYN IV X 1 THIS SHIFT, PROTONIX IV D/DC THIS AM. CC TELE ON THE MONITOR NSR. PATIENT HAS ABCESS ON BUTTOCK, FEATHER SEPARATOR, CLEANSED AND BARRIER CREAM APPLIED. PATIENT GIVEN MIRALAX ON NIGHTSHIFT, RESULTS TODAY, LARGE DARK GREEN STOOL, STOOL SENT FOR OCCULT BLOOD. PATIENT ASSISTED UP TO THE BSC, C/O BAKC PAIN, HYDROCODONE 1 TABLET GIVEN WITH PARTIAL RELIEF, CHRONIC BACK PAIN. PATIENT VOIDS PER URINAL, BUT CAN BE INCONTINENT. BLOOD SUGAR MONITORING ORDERED, S/S INSULIN GIVENPER BLOOD SUGAR, LAST BS 201, RECEIVED 4 UNITS OF LISPRO. NEW ORDER FOR LABS IN AM CBC/BMP. WILL CONTINUE TO MONITOR. COMPLETE BED CHANGE DONE.
[2019-02-11 20:02] VITALS: BP 123/62
[2019-02-12 04:30] LABS: HEMATOCRIT 27.1 % (42.0-52.0); HEMOGLOBIN 8.9 gm/dL (14.0-18.0); MCH 29.4 pg (26.0-34.0); MCHC 32.9 g/dL (28.0-37.0); MCV 89.4 fL (80.0-100.0); RBC 3.03 mil/uL (4.50-6.00); RDW 17.7 % (10.5-14.5)
[2019-02-12 04:33] VITALS: BP 124/65
[2019-02-12 04:55] LABS: CALCIUM 7.9 mg/dL (8.5-10.1); CREATININE 0.6 mg/dL (0.7-1.3); POTASSIUM 3.6 mmol/L (3.5-5.1)
--- NOTE | 2019-02-12 05:47 | NUR ---
ASSESSMENT DOCUMENTED.PT BEEN RESTING IN BED FAMILY AT BEDSIDE,PT SLEEPING MOST OF THE NOC BUT EASY TO AROUSE.SEEMS VERY TIRED AND LETHARGIC.MOVES ALL EXTREMITIES.DENIES PAIN OR ANY DISCOMFORT.VOIDING VIA URINAL.CONT ON ABT TX,TOLERATING.NO N/V.POC IS TO COT TO MONITOR WHILE FAMILY DECIDES ON THE PLAN FOR SKILLED FACILITY,
[2019-02-12 08:21] VITALS: BP 128/42
[2019-02-12 12:09] VITALS: BP 111/58
[2019-02-12 16:20] VITALS: BP 110/53
--- NOTE | 2019-02-12 19:57 | NUR ---
PT ALERT AND ORIENTED TIMES FOUR. VSS, 96%2L, SR ON TELE. PT DENEIS PAIN/SOA. PT TOLERATES MEDS AND MEALS. PT UP WITH ASSIST OF ONE. FAMILY AT BEDSIDE. REMAINS IN CONTACT ISOLATION. WILL CONTINUE TO MONITOR.
[2019-02-12 20:30] VITALS: BP 110/56
[2019-02-13 05:20] VITALS: BP 112/58
[2019-02-13 08:08] VITALS: BP 121/61
--- NOTE | 2019-02-13 08:23 | NUR ---
patient is alert and oriented. patient is up times one. patient is on 2l nc. patient is achs accuchecks paitient can turn self. patients lbm is the 22nd. patient was given an insintive spiromier. patient is nsr on tele. patients pain is treated with pain medication. patient is resting comfortably in bed. patient is pending placement.
--- NOTE | 2019-02-13 10:22 | HC ---
[facility] [place] [address] CONSULTATION Name: ANGIEDIA Room #: 356-P ADM IN M.R.#: [id number] Admission: 02/06/19 ������������������ Attend Phys: Eliazar Conrad DO Discharge: ������������������ Date of : 55 Report #: [id number] THIS REPORT FOR: //name// CC: FAM unknown Eliazar Conrad DATE OF SERVICE: 02/10/2019 INFECTIOUS DISEASES CONSULTATION HISTORY OF PRESENT ILLNESS: The patient is a 63-year-old admitted on 02/06/2019 with anxiety and rectal bleeding. He had previously been in the hospital for workup of bilateral pulmonary infiltrates. He underwent bronchoscopy on 01/11/2019, with cultures negative and pulmonary nodule transbronchial biopsies negative for malignancy. From that hospital stay, he was discharged on Augmentin and prednisone taper. Following return, he has bilateral nodular lesions to his lungs and exacerbation of COPD. CT imaging showed evidence of lesions involving both kidneys as well as a perianal lesion. The perianal lesion was biopsied and showed evidence of anal carcinoma. He was seen by Pulmonary Medicine, GI Service and Oncology. Overall, he just has not done well. He has had no further bleeding. He does have known gastric AVMs, grade B esophagitis and duodenitis. They were considering hospice care. This has not been confirmed. He remains on oxygen per nasal cannula. He has had intermittent cough with a small amount of sputum production. He has significant amount of pain, a lot of which is from his low back. He does have L5 and sacral lesions that were concerning for metastatic disease. ALLERGIES: None known. MEDICATIONS: As noted on his MAR, including Zosyn. PAST MEDICAL HISTORY: Diabetes, depression, schizophrenia, anxiety, COPD, opioid dependence, smoker, anemia, appendectomy, gastroesophageal reflux, hypertension, hyperlipidemia, dysphagia, non-STEMI, rib fractures and pulmonary nodules. FAMILY HISTORY: Noncontributory. SOCIAL HISTORY: He is a heavy smoker. No significant alcohol intake. REVIEW OF SYSTEMS: Denies any nausea or vomiting. There has been no diarrhea. No dysuria. Very weak, on oxygen per nasal cannula. Has pain rolling over in bed. Other 10-point review was negative. PHYSICAL EXAMINATION: VITAL SIGNS: He is afebrile and hemodynamically stable. [facility] [address] [place] [address] CONSULTATION Name: DIA ADAMS Room #: 356-P [facility] IN M.R.#: [id number] Admission: 02/06/19 ������������������ Attend Phys: Eliazar Conrad, Discharge: ������������������ Date of : 55 Report #: [id number] SKIN: He had multiple tattoos on his skin. He had a right perianal ulcer, which was indurated and had serous drainage. No other palpable adenopathy. EYES: Without scleral icterus. MOUTH: Without mucositis. LUNGS: Coarse bilaterally. No consolidation. HEART: Regular, without murmur, gallop or rub. ABDOMEN: Soft and nontender, with no hepatosplenomegaly or mass. GENITOURINARY: External genitalia without mass or lesion. RECTAL EXAMINATION: Not performed. EXTREMITIES: With no cyanosis, clubbing, but did have trace edema. Cranial nerves were intact. Strength in the upper and lower extremities was symmetric, but generalized weak. PSYCHIATRIC: Mood appeared a bit anxious, especially with the rolling movement. LABORATORY DATA: Hemoglobin 9.3, WBC 17.3. Creatinine 0.7. ALT 16. Alkaline phosphatase 169. BNP 749. CT scan was reviewed. Evidence of cirrhosis, renal lesions, adenopathy and pulmonary lesions. IMPRESSION: Metastatic anal carcinoma with lesions involving lung, bone and nodes; upper gastrointestinal bleed, stabilized; diabetes; chronic obstructive pulmonary disease; probable chronic obstructive pulmonary disease exacerbation; previous Natty esophagitis and reflux and marked debility, considering hospice care due to the extensive nature of his disease. RECOMMENDATIONS: We will continue Zosyn for the next 24-48 hours until his plan of care as delineated. At that point, we could switch to enteral therapy to complete his course. Imaging studies showed no evidence of dense pneumonia, suspecting most of this is metastatic disease in the lungs. ��������������������������������������������� <ELECTRONICALLY SIGNED> ���������������������������������������� By: Emmanuel Morales MD ��������������������������������������������� 02/13/19 1022 2045 [id number] Emmanuel Morales MD /nt
[2019-02-13 11:00] VITALS: BP 115/63
--- NOTE | 2019-02-13 14:24 | NUR ---
SW reviewed chart and spoke with nursing and attending physician. Palliative care physician met with pt, and friend at bedside to discuss plan of care and treatment goals. Pt and spouse are agreeable with DNR status and request pt go to rehab/SNF. Therapy evaluations ordered today. Awaiting therapy evals at this time. LIO is following to assist as needed with discharge planning.
[2019-02-13 15:58] VITALS: BP 120/60
--- NOTE | 2019-02-13 18:35 | NUR ---
ASSUMED PATIENT CARE AT 0700. A/O X2. CONFUSED. FAMILY MEMBERS IN THE ROOM. DR LOUIS CAME TO SEE PATINE. PATIENT CODE IS NO CODE NOW. GENERLIZED WEAKNESS. 2L O2 PRN. SLOWLY TOWARDS POC GOALS.
[2019-02-13 19:10] VITALS: BP 140/96
[2019-02-14 03:56] VITALS: BP 136/55
[2019-02-14 04:14] LABS: HEMATOCRIT 26.2 % (42.0-52.0); HEMOGLOBIN 8.6 gm/dL (14.0-18.0); MCH 29.3 pg (26.0-34.0); MCHC 32.9 g/dL (28.0-37.0); RBC 2.95 mil/uL (4.50-6.00); RDW 17.8 % (10.5-14.5); WBC 11.4 thou/uL (4.0-11.0)
--- NOTE | 2019-02-14 05:43 | NUR ---
ASSUME CARE FOR PT AT 1845. AND FRIEND ALREADY STARTED MAKING REQUEST TO THE [facility]. I EXPLAINED TO [employer] [facility] THE FAMILY WILL TRY THIS AND TO SAY NO. THE [facility] WILL NOT MAKE REQUEST TO NURSE. FOLLOWING POC WITH PAIN MANAGEMENT AND ORAL ANTIBIOTICS. PT HAS ABILITY TO USE THE URINAL. ISOLATION PRECAUTIONS BEING FOLLOWED FOR BED BUGS. ADDED NICOTINE PATCH FOR PATIENT. HOURLY ROUNDING.
[2019-02-14 07:42] VITALS: BP 141/60
--- NOTE | 2019-02-14 11:17 | NUR ---
discharge planning: dp faxed updates to [facility] and notified Jayshree/liaron of incoming updates.
[2019-02-14 11:23] VITALS: BP 132/52
--- NOTE | 2019-02-14 15:42 | NUR ---
LIO reviewed chart and spoke with nursing and attending physician. Pt is medically stable for discharge to SNF today. LIO discussed with [facility] liaison, who met with pt, and his brother at bedside. Pt's brother has been at the bedside for the past two days. [facility] liaison states they can admit pt once insurance authorization is approved, and then pt's and brother in law can also be admitted to LTC or to their RCF. LIO contacted pt's 's PCP's office (Dr. Khushbu Guadarrama) and spoke with Khushbu to request medical records and admission order for less than 30 days to be sent to [facility]. LIO spoke with Andrea Schreiber CM, to provide update. Candie states that they had tried to get pt and spouse to move into [facility] for awhile now. Plan is for pt to be in the SNF and to be in the building (LTC or RCF) and she will be able to see pt daily. [facility] liaison and Andrea [facility] have discussed and will make arrangements for pt/spouse belongings to be moved to [facility]. Awaiting insurance authorization. LIO requested attending physician put in d/c orders to have in case auth is obtained later today. Chart copy ordered. LIO is following to assist as needed with discharge planning.
[2019-02-14] MEDS ORDERED: NICOTINE TRANSD21 M1 TRANSDERM (15:49)
[2019-02-14] MEDS ORDERED: NOVOLOG100 UNIT/1 SUBQ (15:49)
[2019-02-14] MEDS ORDERED: PROTONIX40 M1 PO (15:49)
[2019-02-14] MEDS ORDERED: AUGMENTIN 875-1 EACH PO (15:49)
[2019-02-14] MEDS ORDERED: PREDNISONE 20 M20 MG PO (15:49)
[2019-02-14 16:27] VITALS: BP 122/85
--- NOTE | 2019-02-14 17:51 | NUR ---
NO CHANGED ON THIS SHIFT. TWO FAMILY MEMBERS IN PATIENTS ROOM. C/O BACK PAIN. ASSISTED TO CHAIR. SLOWLY TOWARDS POC GOALS.
[2019-02-14 19:26] VITALS: BP 115/94
--- NOTE | 2019-02-15 04:29 | NUR ---
PT RESTING, FAMILY IN ROOM, ENC. TO KEEP ROOM CLOSED. STILL ON ISOLATION. HAD 2 CUPS OF COFFEE, TURNE/REPOSITIONED, VOIDING PER URINAL, NO BM PASSED, HOURLY ROUNDING, MONITORED.
[2019-02-15 04:32] VITALS: BP 144/64
[2019-02-15 08:05] VITALS: BP 133/58
[2019-02-15 11:49] VITALS: BP 121/63
--- NOTE | 2019-02-15 12:01 | NUR ---
DISCHARGE NOTE: LIO reviewed chart and spoke with nursing and attending physician. Pt is medically stable for discharge today to [facility] SNF. LIO discussed with [facility] liaison, who confirms they have authorization and can admit pt and spouse today. LIO faxed discharge orders/summary to [facility] and confirmed info was received. Wheelchair van transportation scheduled for [id number] per [employer]. [facility] arranged transportation. LIO met with pt, and pt's brother, Tariq, to discuss discharge plan. Tariq will be getting a ride home with his sister, and will continue to work on getting moved into [facility]. Pt and are agreeable with discharge plan. LIO left voice message for Candie, behavioral health case manager at [facility]. [facility] team will follow up with pt and on Wednesday. LIO notified housing liaison of pt's discharge disposition to follow up. No further SW needs identified at this time, but is available to assist should needs arise.
--- NOTE | 2019-02-15 14:10 | NUR ---
ASSUMED PATIENT CARE AT 0700. ALERT CONFUSED.DC TO CENTER AT 1400. NO ONE ANSWER THE PHONE TO HAVE REPORT. MESSAGE LEFT.
--- NOTE | 2019-02-16 12:43 | HC ---
[facility] [place] [address] CONSULTATION Name: ANGIEDIA Room #: 356-P [facility] IN M.R.#: [id number] Admission: 02/06/19 ������������������ Attend Phys: Eliazar Conrad DO Discharge: 02/15/19 ������������������ Date of : 55 Report #: [id number] THIS REPORT FOR: //name// CC: FAM unknown Eliazar Conrad HISTORY OF PRESENT ILLNESS: This patient was admitted through the Emergency Room and I had been asked to see him in consultation regarding suspected widespread malignancy. He has been recently incontinent of stool and on exam, was found to have a perirectal mass, which has been biopsied. His x-ray studies showed many soft tissue nodules within his lungs compatible with metastatic cancer as well as suspicious lymphadenopathy. He and his deny a prior known diagnosis of malignancy. He has not had prior GI evaluation. PAST MEDICAL HISTORY: Significant for insulin-dependent diabetes. He has had depression, schizophrenia, chronic obstructive pulmonary disease, opioid dependence, is ongoing smoker. He has had hyperlipidemia and medically managed hypertension. SOCIAL HISTORY: Positive for 50 pack years of cigarettes. He denies alcohol consumption. FAMILY HISTORY: Positive for Alzheimer's and COPD. REVIEW OF SYSTEMS: Negative for him detecting any pain or palpable mass history. He denies sweats, chills, fevers and unintended weight loss. He initially had chest pain and was felt to have a panic attack. He had earlier bronchoscopy for evaluation of lung masses and was negative for malignancy. PHYSICAL EXAMINATION: GENERAL: Shows him to be alert. His is present. Neither are good historians. HEENT: Shows no evidence of jaundice. CARDIOVASCULAR: Normal S1, S2. CHEST: Shows wheezing. ABDOMEN: Soft. EXTREMITIES: No clubbing, cyanosis, edema. NEUROLOGIC: No focal localizing signs. PSYCHIATRIC: Low mentation. PELVIC: Shows perirectal ulcer to left of his anus. LABORATORY DATA: Biopsy of a right anterior perianal ulcerated mass from 02/02/2019 shows anal ductal glandular carcinoma. PLAN: The patient is a poor candidate for treatment with his preexisting [address] [address] CONSULTATION Name: DIA ADAMS Room #: 356-P [facility] IN M.R.#: [id number] Admission: 02/06/19 ������������������ Attend Phys: Eliazar Conrad DO Discharge: 02/15/19 ������������������ Date of : 55 Report #: [id number] medical comorbidities and request has been made that he be seen by hospice for suspected stage 4 malignancy. We are assuming that the lung lesions are from this anal carcinoma. Untreated, he would certainly qualify for low expected life expectancy. This cancer would not be amenable to radiation or surgery based on suspected clinical staging though could be treated with systemic chemotherapy, it would be incurable. If they meet with hospice and did not wish to pursue any therapy that is clearly appropriate. With treatment, these tumors may respond and remit with regimens used to treat rectal adenocarcinomas. That life expectancy to those treated and responding have median of 36 months. I will check back regarding his decisions tomorrow. Thanks for allowing me to participate in his care. ��������������������������������������������� <ELECTRONICALLY SIGNED> ���������������������������������������� By: Sujata Brasher MD ��������������������������������������������� 02/16/19 1243 1514 1629 Sujata Brasher MD /nt
== END 2019-02-15 14:21 | DRG 377 ==
LOC: ER 20:01 → EROBS 22:15 → 3W 22:15
PROVIDERS: Emergency Medicine; Hospitalist; Internal Medicine; Nurse Practitioner; Nurse Practitioner Acute Care; ADMIT Internal Medicine Geriatric Medicine
PROC: 30233N1 Transfusion of Nonautologous Red Blood Cells into Peripheral Vein, Percutaneous Approach (ICD-10-PCS; principal; 2019-02-07)
DX: K92.2 Gastrointestinal hemorrhage, unspecified (principal); J96.21 Acute and chronic respiratory failure with hypoxia; E43 Unspecified severe protein-calorie malnutrition; J15.6 Pneumonia due to other Gram-negative bacteria; C19 Malignant neoplasm of rectosigmoid junction; D62 Acute posthemorrhagic anemia; K62.6 Ulcer of anus and rectum; C78.00 Secondary malignant neoplasm of unspecified lung; C79.51 Secondary malignant neoplasm of bone; C77.9 Secondary and unspecified malignant neoplasm of lymph node, unspecified; K74.60 Unspecified cirrhosis of liver; C61 Malignant neoplasm of prostate; R91.8 Other nonspecific abnormal finding of lung field; R59.9 Enlarged lymph nodes, unspecified; E11.9 Type 2 diabetes mellitus without complications; F41.0 Panic disorder [episodic paroxysmal anxiety]; F32.9 Major depressive disorder, single episode, unspecified; F20.9 Schizophrenia, unspecified; J44.9 Chronic obstructive pulmonary disease, unspecified; K21.9 Gastro-esophageal reflux disease without esophagitis; I10 Essential (primary) hypertension; E78.5 Hyperlipidemia, unspecified; F17.210 Nicotine dependence, cigarettes, uncomplicated; I25.2 Old myocardial infarction; Z68.21 Body mass index [BMI] 21.0-21.9, adult; Z87.81 Personal history of (healed) traumatic fracture; Z90.49 Acquired absence of other specified parts of digestive tract; Z79.4 Long term (current) use of insulin; Z79.899 Other long term (current) drug therapy; Z81.8 Family history of other mental and behavioral disorders; Z82.5 Family history of asthma and other chronic lower respiratory diseases
CPT/HCPCS: 10879